=== PATIENT | female | born 1985 | race Caucasian/White ===

== ENCOUNTER 2016-08-02 22:53 | Emergency (ER) | payer OTHER ==
--- NOTE | 2016-08-03 02:40 | ED CLINICAL REPORT ---
Clinical Report - Physicians/Mid Levels [facility] [address] [place] [address] 08/02/2016 22:52 Patient: JESSE SNYDER Time Seen: 02:31 Aug 03 2016. Arrived- By private vehicle. Historian- patient. CPT: ER phys charges level 3 (#[id number]). HISTORY OF PRESENT ILLNESS Chief Complaint: Rectal itching with small white worms noted. 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 The patient has not had dark stools or rectal bleeding or pain. No constipation, nausea, vomiting or abdominal pain. Similar symptoms previously: None. Recent medical care: Not recently seen/assessed. REVIEW OF SYSTEMS No dizziness, fainting episodes, weakness, fever or sore throat. No cough, difficulty breathing, chest pain, hematuria or skin rash. No chills. Denies current . All systems otherwise negative, except as recorded above. PAST HISTORY See nurses notes. Medications: None. Allergies: Sulfa Antibiotics. SOCIAL HISTORY Heavy tobacco smoker (cigarette)- less than 1 pack per day. Alcohol use. History of drug use: marijuana. ADDITIONAL NOTES The nursing notes have been reviewed. PHYSICAL EXAM Vital Signs: 08/02/2016 23:05 BP: 133/91. HR: 96. RR: 16. O2 saturation: 100%. Temp: 97.5 F. Pain level now: 6/10. Appearance: Alert. No acute distress. Eyes: Eyes normal inspection. ENT: Pharynx normal. CVS: Normal heart rate and rhythm. Respiratory: No respiratory distress. Abdomen: Soft and nontender. Bowel sounds normal. Rectal: (No evidence of worm seen over perianal area.). Skin: Skin warm. Normal skin color. No rash. Neuro: Oriented X 3. PROGRESS AND PROCEDURES Course of Care: Presumed pinworm given the history and symptoms. Patient/family counseled. Disposition: Discharged. Condition: stable. CLINICAL IMPRESSION Pinworm INSTRUCTIONS Drink plenty of fluids. Prescription Medications: Mebendazole 100 mg: Take 1 orally today and repeat in 2 weeks. Dispense two (2). No refills. Follow-up: Follow up with your doctor in one week. Call for an appointment. Understanding of the discharge instructions verbalized by patient. (Electronically signed by Stephane Mclaughlin MD 08/04/2016 21:58)
--- NOTE | 2016-08-03 02:40 | ED CLINICAL REPORT ---
Clinical Report - Physicians/Mid Levels [facility] [address] [place] [address] 08/02/2016 22:52 Patient: JESSE SNYDER Time Seen: 02:31 Aug 03 2016. Arrived- By private vehicle. Historian- patient. CPT: ER phys charges level 3 (#[id number]). HISTORY OF PRESENT ILLNESS Chief Complaint: Rectal itching with small white worms noted. 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 The patient has not had dark stools or rectal bleeding or pain. No constipation, nausea, vomiting or abdominal pain. Similar symptoms previously: None. Recent medical care: Not recently seen/assessed. REVIEW OF SYSTEMS No dizziness, fainting episodes, weakness, fever or sore throat. No cough, difficulty breathing, chest pain, hematuria or skin rash. No chills. Denies current . All systems otherwise negative, except as recorded above. PAST HISTORY See nurses notes. Medications: None. Allergies: Sulfa Antibiotics. SOCIAL HISTORY Heavy tobacco smoker (cigarette)- less than 1 pack per day. Alcohol use. History of drug use: marijuana. ADDITIONAL NOTES The nursing notes have been reviewed. PHYSICAL EXAM Vital Signs: 08/02/2016 23:05 BP: 133/91. HR: 96. RR: 16. O2 saturation: 100%. Temp: 97.5 F. Pain level now: 6/10. Appearance: Alert. No acute distress. Eyes: Eyes normal inspection. ENT: Pharynx normal. CVS: Normal heart rate and rhythm. Respiratory: No respiratory distress. Abdomen: Soft and nontender. Bowel sounds normal. Rectal: (No evidence of worm seen over perianal area.). Skin: Skin warm. Normal skin color. No rash. Neuro: Oriented X 3. PROGRESS AND PROCEDURES Course of Care: Presumed pinworm given the history and symptoms. Patient/family counseled. Disposition: Discharged. Condition: stable. CLINICAL IMPRESSION Pinworm INSTRUCTIONS Drink plenty of fluids. Prescription Medications: Mebendazole 100 mg: Take 1 orally today and repeat in 2 weeks. Dispense two (2). No refills. Follow-up: Follow up with your doctor in one week. Call for an appointment. Understanding of the discharge instructions verbalized by patient. (Electronically signed by Stephane Mclaughlin MD 08/04/2016 21:58)
--- NOTE | 2016-08-03 02:40 | ED NURSING NOTES ---
Clinical Report - Nurses [facility] [address] [place] [address] 08/02/2016 22:52 Patient: JESSE SNYDER TRIAGE Triage time 23:05. Acuity: LEVEL 3. Chief Complaint: ABDOMINAL PAIN (rectal itching). 23:12. Alert. SEPSIS SCREEN: Sepsis Screen. Negative (no infection suspected/documented). ANGELES COMA SCORE: [place] Coma Scale: 4- eyes open spontaneously (4). --23:12 Radhames Ziegler R.N. 23:05 08/02/16. BP: 133/91. HR: 96. RR: 16. O2 saturation: 100%. Temp: 97.5 F. Pain level now: 01/04. --23:12 Radhames Ziegler R.N. Weight: 58.9 kg stated. Height/Length: 63 inches Per Patient. BMI: 23. --23:10 Radhames Ziegler R.N. Medications None. --23:09 Radhames Ziegler R.N. Medication/allergy information source: the patient. --23:12 Radhames Ziegler R.N. Allergies Sulfa Antibiotics. --23:09 Radhames Ziegler R.N. History Arrived by private vehicle. Historian: patient. Accompanied by friend. Primary physician (None). Onset. (1 weeks ago). ( Patient reports rectal itching for about 1 week, ABD cramping for 3 days, also reports seeing white in her stool- thinks she may have pin worms). 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 Took Tylenol and ibuprofen. PAST MEDICAL HX: Immunizations: up-to-date. Last normal menstrual period was 3 weeks ago. SOCIAL HX: Current every day heavy tobacco smoker- less than 1 pack per day. Occasional alcohol use. History of weekly drug use: marijuana. No infectious disease exposure. ABUSE ASSESSMENT: No report of abuse. FALL RISK ASSESSMENT: Fall risk assessment completed. No fall risk identified. NUTRITIONAL RISK ASSESSMENT: The nutritional risk assessment revealed no deficiencies. FUNCTIONAL ASSESSMENT: Functional assessment: no impairments noted. LEARNING NEEDS ASSESSMENT: The learning needs assessment revealed no barriers. SKIN INTEGRITY ASSESSMENT: Skin integrity risk assessment completed. No skin integrity risk identified. --23:12 Radhames Ziegler R.N. PROBLEMS: Ovarian Cyst. --23: Radhames Ziegler R.N. ADDITIONAL SURGERIES: . --23: Radhames Ziegler R.N. Interventions ID band on patient. To treatment room. --23: Radhames Ziegler R.N. PHYSICAL ASSESSMENT Ambulatory to room. GENERAL / NEURO / PSYCH: Alert. Oriented X 4. Appears in no acute distress. HEENT: Pupils equal, round and reactive to light. RESPIRATORY: Respirations not labored. GI / : Abdomen soft and nontender and normal bowel sounds. SKIN: Skin intact. Skin is warm and dry. Normal skin turgor. --01:00 Sabina Pineda R.N. NURSING PROGRESS NOTES Patient gowned. Head of bed elevated. Two patient identifiers checked. Call light placed in reach. Side rails up x 1. Bed placed in lowest position. Brakes of bed on. Patient ready for evaluation. --00:40 Sabina Pineda R.N. 00:47 08/03/16. BP: 119/89. HR: 97. O2 saturation: 100%. Temp: 97.9 F. --00:48 Ana Paula Love 02:15 pt waiting to see . --02:39 Sabina Pineda R.N. 02:15 08/03/16. BP: 111/73. HR: 95. RR: 18 (unlabored). O2 saturation: 98% on room air. Pain level now: 12/04. --02:39 Sabina Pineda R.N. assisted MD with pt's rectal exam. --02:39 Sabina Pineda R.N. DISPOSITION / DISCHARGE Departure time: 256. Condition at departure: unchanged. No learning barriers present. Discharge instructions provided and reviewed with the patient. Reviewed medication(s). Prescription(s) given to the patient (Mebendazole). Patient verbalized understanding. Written instructions provided in Greek. The patient was discharged by the physician. She was discharged home and accompanied by family. She left the Emergency Department ambulatory and via private vehicle. Family member driving. Medication list reviewed and validated with the patient. --04:05 Sabina Pineda R.N. 02:57 08/03/16. BP: deferred. HR: deferred. RR: deferred. O2 saturation: deferred. Temp: deferred. Pain level now deferred. --04:05 Sabina Pineda R.N. Locked/Released at 08/03/2016 4:05 by Sabina Pineda R.N.
--- NOTE | 2016-08-03 02:40 | ED NURSING NOTES ---
Clinical Report - Nurses [facility] [address] [place] [address] 08/02/2016 22:52 Patient: JESSE SNYDER TRIAGE Triage time 23:05. Acuity: LEVEL 3. Chief Complaint: ABDOMINAL PAIN (rectal itching). 23:12. Alert. SEPSIS SCREEN: Sepsis Screen. Negative (no infection suspected/documented). ANGELES COMA SCORE: [place] Coma Scale: 4- eyes open spontaneously (4). --23:12 Radhames Ziegler R.N. 23:05 08/02/16. BP: 133/91. HR: 96. RR: 16. O2 saturation: 100%. Temp: 97.5 F. Pain level now: 01/04. --23:12 Radhames Ziegler R.N. Weight: 58.9 kg stated. Height/Length: 63 inches Per Patient. BMI: 23. --23:10 Radhames Ziegler R.N. Medications None. --23:09 Radhames Ziegler R.N. Medication/allergy information source: the patient. --23:12 Radhames Ziegler R.N. Allergies Sulfa Antibiotics. --23:09 Radhames Ziegler R.N. History Arrived by private vehicle. Historian: patient. Accompanied by friend. Primary physician (None). Onset. (1 weeks ago). ( Patient reports rectal itching for about 1 week, ABD cramping for 3 days, also reports seeing white in her stool- thinks she may have pin worms). 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 Took Tylenol and ibuprofen. PAST MEDICAL HX: Immunizations: up-to-date. Last normal menstrual period was 3 weeks ago. SOCIAL HX: Current every day heavy tobacco smoker- less than 1 pack per day. Occasional alcohol use. History of weekly drug use: marijuana. No infectious disease exposure. ABUSE ASSESSMENT: No report of abuse. FALL RISK ASSESSMENT: Fall risk assessment completed. No fall risk identified. NUTRITIONAL RISK ASSESSMENT: The nutritional risk assessment revealed no deficiencies. FUNCTIONAL ASSESSMENT: Functional assessment: no impairments noted. LEARNING NEEDS ASSESSMENT: The learning needs assessment revealed no barriers. SKIN INTEGRITY ASSESSMENT: Skin integrity risk assessment completed. No skin integrity risk identified. --23:12 Radhames Ziegler R.N. PROBLEMS: Ovarian Cyst. --23: Radhames Ziegler R.N. ADDITIONAL SURGERIES: . --23: Radhames Ziegler R.N. Interventions ID band on patient. To treatment room. --23: Radhames Ziegler R.N. PHYSICAL ASSESSMENT Ambulatory to room. GENERAL / NEURO / PSYCH: Alert. Oriented X 4. Appears in no acute distress. HEENT: Pupils equal, round and reactive to light. RESPIRATORY: Respirations not labored. GI / : Abdomen soft and nontender and normal bowel sounds. SKIN: Skin intact. Skin is warm and dry. Normal skin turgor. --01:00 Sabina Pineda R.N. NURSING PROGRESS NOTES Patient gowned. Head of bed elevated. Two patient identifiers checked. Call light placed in reach. Side rails up x 1. Bed placed in lowest position. Brakes of bed on. Patient ready for evaluation. --00:40 Sabina Pineda R.N. 00:47 08/03/16. BP: 119/89. HR: 97. O2 saturation: 100%. Temp: 97.9 F. --00:48 Ana Paula Love 02:15 pt waiting to see . --02:39 Sabina Pineda R.N. 02:15 08/03/16. BP: 111/73. HR: 95. RR: 18 (unlabored). O2 saturation: 98% on room air. Pain level now: 12/04. --02:39 Sabina Pineda R.N. assisted MD with pt's rectal exam. --02:39 Sabina Pineda R.N. DISPOSITION / DISCHARGE Departure time: 256. Condition at departure: unchanged. No learning barriers present. Discharge instructions provided and reviewed with the patient. Reviewed medication(s). Prescription(s) given to the patient (Mebendazole). Patient verbalized understanding. Written instructions provided in Emirati. The patient was discharged by the physician. She was discharged home and accompanied by family. She left the Emergency Department ambulatory and via private vehicle. Family member driving. Medication list reviewed and validated with the patient. --04:05 Sabina Pineda R.N. 02:57 08/03/16. BP: deferred. HR: deferred. RR: deferred. O2 saturation: deferred. Temp: deferred. Pain level now deferred. --04:05 Sabina Pineda R.N. Locked/Released at 08/03/2016 4:05 by Sabina Pineda R.N.
--- NOTE | 2016-08-04 21:59 | ED MED RECONCILIATION SUMMARY ---
Patient: JESSE SNYDER Medication Reconciliation Report [facility] VisitID: [id number] [address] [place] [address] 31y, F Registration Date/Time: 08/02/2016 Weight: 58.9 kg Height/Length: 63 in. BMI: 23.0 ALLERGIES: Sulfa Antibiotics The patient's Home Medications are listed below: NONE. The source(s) of the original Home Medication information: patient The following Medications were given to the patient in the Emergency Department: None. The following Medications were prescribed to the patient: Mebendazole 100 mg: Take 1 orally today and repeat in 2 weeks. Dispense two (2). No refills. -- Stephane Mclaughlin MD
--- NOTE | 2016-08-04 21:59 | ED MAR SUMMARY ---
..... Medication Administration Record [facility] [address] [place], [place] [id number] Patient: JESSE SNYDER Visit ID: [id number] 31y, F Weight: 58.9 kg Height/Length: 63 in BMI: 23 ALLERGIES: Sulfa Antibiotics
--- NOTE | 2016-08-04 21:59 | ED MAR SUMMARY ---
..... Medication Administration Record [facility] [address] [place], [place] [id number] Patient: JESSE SNYDER Visit ID: [id number] 31y, F Weight: 58.9 kg Height/Length: 63 in BMI: 23 ALLERGIES: Sulfa Antibiotics
--- NOTE | 2016-08-04 21:59 | ED DISCHARGE INSTRUCTIONS ---
Patient: JESSE SNYDER General Instructions [facility] VisitID: [id number] [place] [address] 31y, F Registration Date/Time: 08/02/2016 Pinworm INSTRUCTIONS Drink plenty of fluids. Prescription Medications: Mebendazole 100 mg: Take 1 orally today and repeat in 2 weeks. Dispense two (2). No refills. Follow-up: Follow up with your doctor in one week. Call for an appointment. Understanding of the discharge instructions verbalized by patient. ADDITIONAL INFORMATION Pinworms [Child] P inworms are parasites that look like tiny (1/2 " long) white worms that live in the colon and rectum of humans. This is not uncommon among children under the age of ten years. A child with a pinworm infection will have intense itching around the anus (rectal opening) during the night. This is when pinworms come out of the rectum and lay eggs around the anus. When the child scratches this area, the eggs get under the fingernails. When other children as well as family members have [id number] contact with the infected child, eggs are passed. If you do not wash your hands after contact, the eggs get onto the food that you eat, and then an infection occurs. Treatment is with two doses of medicine taken two weeks apart. All family members should be treated at the same time , even those without symptoms. This is to be sure all pinworms and eggs among family members are killed at once. Home Care: 1) Sheets, bedding, underwear, and pajamas should be washed in hot water and then ironed to kill the eggs. 2) Parents and caretakers should wash their hands frequently especially before preparing meals, eating food and after changing or bathing the child with the infection. 3) Trim your child's nails and clean them each morning until the anal itching stops. 4) If your child is old enough, teach him/her to wash his/her hands before eating and after using the toilet. Follow Up with your doctor as advised to be sure the infection has cleared after treatment. Get Prompt Medical Attention if any of the following occur: -- Abdominal pain -- Increasing redness, drainage of fluid or crusty scabs around the anus -- Continued itching around the anus after finishing the second dose of the medicine You have been given the following additional information: Pinworms (Electronically signed by Stephane Mclaughlin MD 08/04/2016 21:58)
--- NOTE | 2016-08-04 21:59 | ED MED RECONCILIATION SUMMARY ---
Patient: JESSE SNYDER Medication Reconciliation Report [facility] VisitID: [id number] [address] [place] [address] 31y, F Registration Date/Time: 08/02/2016 Weight: 58.9 kg Height/Length: 63 in. BMI: 23.0 ALLERGIES: Sulfa Antibiotics The patient's Home Medications are listed below: NONE. The source(s) of the original Home Medication information: patient The following Medications were given to the patient in the Emergency Department: None. The following Medications were prescribed to the patient: Mebendazole 100 mg: Take 1 orally today and repeat in 2 weeks. Dispense two (2). No refills. -- Stephane Mclaughlin MD
--- NOTE | 2016-08-04 21:59 | ED DISCHARGE INSTRUCTIONS ---
Patient: JESSE SNYDER General Instructions [facility] VisitID: [id number] [place] [address] 31y, F Registration Date/Time: 08/02/2016 Pinworm INSTRUCTIONS Drink plenty of fluids. Prescription Medications: Mebendazole 100 mg: Take 1 orally today and repeat in 2 weeks. Dispense two (2). No refills. Follow-up: Follow up with your doctor in one week. Call for an appointment. Understanding of the discharge instructions verbalized by patient. ADDITIONAL INFORMATION Pinworms [Child] P inworms are parasites that look like tiny (1/2 " long) white worms that live in the colon and rectum of humans. This is not uncommon among children under the age of ten years. A child with a pinworm infection will have intense itching around the anus (rectal opening) during the night. This is when pinworms come out of the rectum and lay eggs around the anus. When the child scratches this area, the eggs get under the fingernails. When other children as well as family members have [id number]-ha-[id number] contact with the infected child, eggs are passed. If you do not wash your hands after contact, the eggs get onto the food that you eat, and then an infection occurs. Treatment is with two doses of medicine taken two weeks apart. All family members should be treated at the same time , even those without symptoms. This is to be sure all pinworms and eggs among family members are killed at once. Home Care: 1) Sheets, bedding, underwear, and pajamas should be washed in hot water and then ironed to kill the eggs. 2) Parents and caretakers should wash their hands frequently especially before preparing meals, eating food and after changing or bathing the child with the infection. 3) Trim your child's nails and clean them each morning until the anal itching stops. 4) If your child is old enough, teach him/her to wash his/her hands before eating and after using the toilet. Follow Up with your doctor as advised to be sure the infection has cleared after treatment. Get Prompt Medical Attention if any of the following occur: -- Abdominal pain -- Increasing redness, drainage of fluid or crusty scabs around the anus -- Continued itching around the anus after finishing the second dose of the medicine You have been given the following additional information: Pinworms (Electronically signed by Stephane Mclaughlin MD 08/04/2016 21:58)
== END 2016-08-03 02:57 | disposition home or self-care (01) ==
LOC: ED SRH 22:53
DX: B80 Enterobiasis (principal); F17.210 Nicotine dependence, cigarettes, uncomplicated; Z88.2 Allergy status to sulfonamides

== ENCOUNTER 2016-08-14 18:16 | Emergency (ER) | payer OTHER ==
--- NOTE | 2016-08-14 20:01 | DIAGNOSTIC IMAGING REPORT ---
PROCEDURE: XR CHEST 2 VIEW INDICATION: FEVER , initial encounter TECHNIQUE: PA and lateral view. COMPARISON: None. FINDINGS: Lungs are clear. Cardiovascular structures are normal. Bony thorax is unremarkable. IMPRESSION: 1. Negative chest.
--- NOTE | 2016-08-14 20:03 | ED CLINICAL REPORT ---
Clinical Report - Physicians/Mid Levels [facility] [address] [place] [address] 08/14/2016 18:15 Patient: JESSE SNYDER Time Seen: 18:59 Aug 14 2016. Arrived- By private vehicle. Historian- patient. HISTORY OF PRESENT ILLNESS Chief Complaint: COUGH. 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 The illness is described as mild. No chest discomfort or nasal discharge. (Patient reports Cough over the last 2 weeks, with congestion, son recently diagnosed with influenza. Reports no nausea or vomiting or diarrhea. Denies any hemoptysis. Multiple sick contacts at home. Patient additionally reports pruritic sensation to her scalp and her hands over the last few weeks, was previously being treated for pinworms. Family has had lice as well, multiple other fam members with pruritic sensations at home.). Additional history - No known contact with a sick individual. REVIEW OF SYSTEMS No nausea, diarrhea, pedal edema, calf pain or skin rash. All systems otherwise negative, except as recorded above. PAST HISTORY Problems: Pinworm. Contusion. Dysfunctional Uterine Bleeding. Ovarian Cyst. Additional Surgeries: . Medications: None. Allergies: Sulfa Antibiotics. SOCIAL HISTORY Smoker- current status unknown. Alcohol use. History of drug use: marijuana. ADDITIONAL NOTES The nursing notes have been reviewed. PHYSICAL EXAM Vital Signs: 08/14/2016 18:25 BP: 134/92. HR: 107. RR: 20. O2 saturation: 96%. Temp: 98.2 F. Pain level now: 6/10. Appearance: Alert. No acute distress. ENT: Pharynx normal. Uvula midline. Neck: Normal inspection. No lymphadenopathy. CVS: Tachycardia. Heart sounds normal. Normal rhythm. No cardiac murmur. Respiratory: No respiratory distress. Breath sounds normal. No retractions or splinting. Abdomen: Soft and nontender. Skin: (small interdigit maculapapular.). LABS, X-RAYS, AND EKG Chest X-ray: (IMPRESSION: 1. Negative chest. Electronically Final signed by:Myles Aguilar MD 08/14/2016 8:01:02 PM). PROGRESS AND PROCEDURES Course of Care: patient here in the ER, with cough, ongoing symptoms for 2 weeks. Patient with a rash, possible scabies. No emesis, no septic or systemic disease processes, no hemoptysis, no recent travel or antibiotic use. 08/14/2016 20:13 BP: 104/78. HR: 80. RR: 16. O2 saturation: 100%. Temp: 98.5 F. Patient is stable. Physical exam findings are improved. Symptoms better. Patient/family counseled. Disposition: Discharged. CLINICAL IMPRESSION Acute bronchitis. Scabies INSTRUCTIONS Drink plenty of fluids. Warnings: Further evaluation is necessary. Prescription Medications: Zithromax 250 mg tablets: take 2 orally today, followed by 1 daily for the next 4 days. No refills. Substitution is permissible. Elimite 5% Cream: Shower and dry thoroughly, then apply cream to whole body from neck down, leave on 8 hours then shower thoroughly and launder clothes and bedclothes in hot water. Repeat in 1 week if needed. Dispense two (2) tubes. No refills. Substitution is permissible. Follow-up: Follow up with your doctor in three days. (Electronically signed by Maryellen Crawford P.A.-C 08/14/2016 20:25)
--- NOTE | 2016-08-14 20:03 | ED NURSING NOTES ---
Clinical Report - Nurses [facility] [address] [place] [address] 08/14/2016 18:15 [id number] TRI[facility] Triage time 18:Aug 14 2016. Acuity: LEVEL 3. 18:25 08/14/16. SEPSIS SCREEN: Sepsis Screen. Negative (no infection suspected/documented). NEAL COMA SCORE: [place] Coma Scale: 15- eyes open spontaneously (4); best verbal response- oriented x 4 (5); best motor response- obeys commands (6). --18:32 Belén Mejía R.N. 18:25 08/14/16. BP: 134/92. HR: 107. RR: 20. O2 saturation: 96%. Temp: 98.2 F. Pain level now: 01/04. --18:32 Belén Mejía R.N. Chief Complaint: (flu sx). 18:25 08/14/16. --20:16 Belén Mejía R.N. Weight: 56.6 kg stated. Height/Length: 63 inches Per Patient. BMI: 22.1. --18:24 Belén Mejía R.N. Medications None. --18:27 Belén Mejía R.N. Medication/allergy information source: the patient. --18:32 Belén Mejía R.N. Allergies Sulfa Antibiotics. --18:27 Belén Mejía R.N. History Arrived by private vehicle. Historian: patient. Unaccompanied. Onset. (2 weeks ago). ( states cough, dyspnea, bronchitis symptoms, many treated for flu in her home, itching scalp, pain left side of chest with cough and movement). She has had fever, a cough and difficulty breathing. Reports muscle aches. No weakness or skin rash. 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 PAST MEDICAL HX: Last normal menstrual period- . Has not received seasonal influenza immunization. SOCIAL HX: Heavy tobacco smoker- 1 pack per day. Occasional alcohol use. History of drug use: marijuana. No infectious disease exposure. ABUSE ASSESSMENT: No report of abuse. SELF HARM ASSESSMENT: A self harm assessment was performed. The patient answered "no" to the question "Have you recently felt down, depressed, or hopeless?", "Have you noticed less interest or pleasure in doing things?", "Do you have thoughts of harming or killing yourself?", "Are you here because you tried to hurt yourself?", "Have you ever tried to hurt yourself before today?", "Have you recently had thoughts about harming or killing others?" and "Do you have any dangerous items in your possession?". FALL RISK ASSESSMENT: Fall risk assessment completed. No fall risk identified. NUTRITIONAL RISK ASSESSMENT: The nutritional risk assessment revealed no deficiencies. FUNCTIONAL ASSESSMENT: Functional assessment: no impairments noted. LEARNING NEEDS ASSESSMENT: The learning needs assessment revealed no barriers. SKIN INTEGRITY ASSESSMENT: Skin integrity risk assessment completed. No skin integrity risk identified. --18:32 Belén Mejía R.N. PROBLEMS: Pinworm. --18:28 Belén Mejía R.N. ADDITIONAL SURGERIES: . --18:28 Belén Mejía R.N. Interventions ID band on patient. --18:32 Belén Mejía R.N. DISPOSITION / DISCHARGE 20:13 08/14/16. Condition at departure: improved and stable. The goals identified in the patient's plan of care were met. No learning barriers present. Reviewed medication(s) side effects, precautions, dosing and course information. Prescription(s) given to the patient (z pack, elimite). Reviewed referral to a primary care physician for followup. Patient verbalized understanding. Written instructions provided in Estonian. The patient was discharged home and unaccompanied at time of discharge. She left the Emergency Department ambulatory and via private vehicle. Driving (calling for ride). --20:13 Belén Mejía R.N. 20:13 08/14/16. BP: 104/78. HR: 80. RR: 16. O2 saturation: 100%. Temp: 98.5 F. Pain level now 0/10. --20:13 Belén Mejía R.N. Departure time: 20:Aug 14 2016. --20:13 Belén Mejía R.N. Locked/Released at 08/14/2016 20:16 by Belén Mejía R.N.
--- NOTE | 2016-08-14 20:03 | ED CLINICAL REPORT ---
Clinical Report - Physicians/Mid Levels [facility] [address] [place] [address] 08/14/2016 18:15 Patient: JESSE SNYDER Time Seen: 18:59 Aug 14 2016. Arrived- By private vehicle. Historian- patient. HISTORY OF PRESENT ILLNESS Chief Complaint: COUGH. 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 The illness is described as mild. No chest discomfort or nasal discharge. (Patient reports Cough over the last 2 weeks, with congestion, son recently diagnosed with influenza. Reports no nausea or vomiting or diarrhea. Denies any hemoptysis. Multiple sick contacts at home. Patient additionally reports pruritic sensation to her scalp and her hands over the last few weeks, was previously being treated for pinworms. Family has had lice as well, multiple other fam members with pruritic sensations at home.). Additional history - No known contact with a sick individual. REVIEW OF SYSTEMS No nausea, diarrhea, pedal edema, calf pain or skin rash. All systems otherwise negative, except as recorded above. PAST HISTORY Problems: Pinworm. Contusion. Dysfunctional Uterine Bleeding. Ovarian Cyst. Additional Surgeries: . Medications: None. Allergies: Sulfa Antibiotics. SOCIAL HISTORY Smoker- current status unknown. Alcohol use. History of drug use: marijuana. ADDITIONAL NOTES The nursing notes have been reviewed. PHYSICAL EXAM Vital Signs: 08/14/2016 18:25 BP: 134/92. HR: 107. RR: 20. O2 saturation: 96%. Temp: 98.2 F. Pain level now: 6/10. Appearance: Alert. No acute distress. ENT: Pharynx normal. Uvula midline. Neck: Normal inspection. No lymphadenopathy. CVS: Tachycardia. Heart sounds normal. Normal rhythm. No cardiac murmur. Respiratory: No respiratory distress. Breath sounds normal. No retractions or splinting. Abdomen: Soft and nontender. Skin: (small interdigit maculapapular.). LABS, X-RAYS, AND EKG Chest X-ray: (IMPRESSION: 1. Negative chest. Electronically Final signed by:Myles Aguilar MD 08/14/2016 8:01:02 PM). PROGRESS AND PROCEDURES Course of Care: patient here in the ER, with cough, ongoing symptoms for 2 weeks. Patient with a rash, possible scabies. No emesis, no septic or systemic disease processes, no hemoptysis, no recent travel or antibiotic use. 08/14/2016 20:13 BP: 104/78. HR: 80. RR: 16. O2 saturation: 100%. Temp: 98.5 F. Patient is stable. Physical exam findings are improved. Symptoms better. Patient/family counseled. Disposition: Discharged. CLINICAL IMPRESSION Acute bronchitis. Scabies INSTRUCTIONS Drink plenty of fluids. Warnings: Further evaluation is necessary. Prescription Medications: Zithromax 250 mg tablets: take 2 orally today, followed by 1 daily for the next 4 days. No refills. Substitution is permissible. Elimite 5% Cream: Shower and dry thoroughly, then apply cream to whole body from neck down, leave on 8 hours then shower thoroughly and launder clothes and bedclothes in hot water. Repeat in 1 week if needed. Dispense two (2) tubes. No refills. Substitution is permissible. Follow-up: Follow up with your doctor in three days. (Electronically signed by Maryellen Crawford P.A.-C 08/14/2016 20:25)
--- NOTE | 2016-08-14 20:03 | ED ORDER SUMMARY ---
..... Patient: JESSE SNYDER OrderSheet [facility] VisitID: [id number] [place] [address] 31y, F Registration Date/Time: 08/14/2016 ORDER SHEET Weight: 56.6 kg (stated) Allergies: Sulfa Antibiotics GENERAL ORDERS: Chest 2V Urgent (18:43 08/14/2016 EKoroleva P.A.-C) (Ack 18:46 NYouse ER Tech1) (19:54 MCampbell) Rapid Influenza Screen (Nasal Pharyngeal) (n) Urgent (18:43 08/14/2016 EKoroleva P.A.-C) (Ack 18:46 NYouse ER Tech1) (18:50 EInderbitzen R.N.) Urine Urgent (19:00 08/14/2016 EIndval R.N. verbal order read back to EKramsey P.A.-C) (19:03 NYouse ER Tech1) MEDICATION ORDERS: IV FLUIDS: ORDER SHEET NOTES: [Electronically signed by Belén Mejía R.N. (20:16 08/14/2016)] [Electronically signed by Maryellen Crawford P.A.-C (20:25 08/14/2016)] [Electronically locked/signed by Belén Mejía R.N. (20:16 08/14/2016)]
--- NOTE | 2016-08-14 20:03 | ED NURSING NOTES ---
Clinical Report - Nurses [facility] [address] [place] [address] 08/14/2016 18:15 [id number] Triage time 18:Aug 14 2016. Acuity: LEVEL 3. 18:25 08/14/16. SEPSIS SCREEN: Sepsis Screen. Negative (no infection suspected/documented). NEAL COMA SCORE: [place] Coma Scale: 15- eyes open spontaneously (4); best verbal response- oriented x 4 (5); best motor response- obeys commands (6). --18:32 Belén Mejía R.N. 18:25 08/14/16. BP: 134/92. HR: 107. RR: 20. O2 saturation: 96%. Temp: 98.2 F. Pain level now: 01/04. --18:32 Belén Mejía R.N. Chief Complaint: (flu sx). 18:25 08/14/16. --20:16 Belén Mejía R.N. Weight: 56.6 kg stated. Height/Length: 63 inches Per Patient. BMI: 22.1. --18:24 Belén Mejía R.N. Medications None. --18:27 Belén Mejía R.N. Medication/allergy information source: the patient. --18:32 Belén Mejía R.N. Allergies Sulfa Antibiotics. --18:27 Belén Mejía R.N. History Arrived by private vehicle. Historian: patient. Unaccompanied. Onset. (2 weeks ago). ( states cough, dyspnea, bronchitis symptoms, many treated for flu in her home, itching scalp, pain left side of chest with cough and movement). She has had fever, a cough and difficulty breathing. Reports muscle aches. No weakness or skin rash. 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 PAST MEDICAL HX: Last normal menstrual period- . Has not received seasonal influenza immunization. SOCIAL HX: Heavy tobacco smoker- 1 pack per day. Occasional alcohol use. History of drug use: marijuana. No infectious disease exposure. ABUSE ASSESSMENT: No report of abuse. SELF HARM ASSESSMENT: A self harm assessment was performed. The patient answered "no" to the question "Have you recently felt down, depressed, or hopeless?", "Have you noticed less interest or pleasure in doing things?", "Do you have thoughts of harming or killing yourself?", "Are you here because you tried to hurt yourself?", "Have you ever tried to hurt yourself before today?", "Have you recently had thoughts about harming or killing others?" and "Do you have any dangerous items in your possession?". FALL RISK ASSESSMENT: Fall risk assessment completed. No fall risk identified. NUTRITIONAL RISK ASSESSMENT: The nutritional risk assessment revealed no deficiencies. FUNCTIONAL ASSESSMENT: Functional assessment: no impairments noted. LEARNING NEEDS ASSESSMENT: The learning needs assessment revealed no barriers. SKIN INTEGRITY ASSESSMENT: Skin integrity risk assessment completed. No skin integrity risk identified. --18:32 Belén Mejía R.N. PROBLEMS: Pinworm. --18:28 Belén Mejía R.N. ADDITIONAL SURGERIES: . --18:28 Belén Mejía R.N. Interventions ID band on patient. --18:32 Belén Mejía R.N. DISPOSITION / DISCHARGE 20:13 08/14/16. Condition at departure: improved and stable. The goals identified in the patient's plan of care were met. No learning barriers present. Reviewed medication(s) side effects, precautions, dosing and course information. Prescription(s) given to the patient (z pack, elimite). Reviewed referral to a primary care physician for followup. Patient verbalized understanding. Written instructions provided in Hebrew. The patient was discharged home and unaccompanied at time of discharge. She left the Emergency Department ambulatory and via private vehicle. Driving (calling for ride). --20:13 Belén Mejía R.N. 20:13 08/14/16. BP: 104/78. HR: 80. RR: 16. O2 saturation: 100%. Temp: 98.5 F. Pain level now 0/10. --20:13 Belén Mejía R.N. Departure time: 20:Aug 14 2016. --20:13 Belén Mejía R.N. Locked/Released at 08/14/2016 20:16 by Belén Mejía R.N.
--- NOTE | 2016-08-14 20:03 | ED ORDER SUMMARY ---
..... Patient: JESSE SNYDER OrderSheet [facility] VisitID: [id number] [place] [address] 31y, F Registration Date/Time: 08/14/2016 ORDER SHEET Weight: 56.6 kg (stated) Allergies: Sulfa Antibiotics GENERAL ORDERS: Chest 2V Urgent (18:43 08/14/2016 EKoroleva P.A.-C) (Ack 18:46 INouse ER Tech1) (19:54 MCampbell) Rapid Influenza Screen (Nasal Pharyngeal) (n) Urgent (18:43 08/14/2016 EKoroleva P.A.-C) (Ack 18:46 INouse ER Tech1) (18:50 EInderbitzen R.N.) Urine Urgent (19:00 08/14/2016 EIndval R.N. verbal order read back to EKramsey P.A.-C) (19:03 INouse ER Tech1) MEDICATION ORDERS: IV FLUIDS: ORDER SHEET NOTES: [Electronically signed by Belén Mejía R.N. (20:16 08/14/2016)] [Electronically signed by Maryellen Crawford P.A.-C (20:25 08/14/2016)] [Electronically locked/signed by Belén Mejía R.N. (20:16 08/14/2016)]
--- NOTE | 2016-08-14 20:25 | ED MAR SUMMARY ---
..... Medication Administration Record [facility] [address], [place] [id number] Patient: JESSE SNYDER Visit ID: [id number] 31y, F Weight: 56.6 kg Height/Length: 63 in BMI: 22.1 ALLERGIES: Sulfa Antibiotics
--- NOTE | 2016-08-14 20:25 | ED DISCHARGE INSTRUCTIONS ---
Patient: JESSE SNYDER General Instructions [facility] VisitID: [id number] [place] [address] 31y, F Registration Date/Time: 08/14/2016 Acute bronchitis. Scabies INSTRUCTIONS Drink plenty of fluids. Warnings: Further evaluation is necessary. Prescription Medications: Zithromax 250 mg tablets: take 2 orally today, followed by 1 daily for the next 4 days. No refills. Substitution is permissible. Elimite 5% Cream: Shower and dry thoroughly, then apply cream to whole body from neck down, leave on 8 hours then shower thoroughly and launder clothes and bedclothes in hot water. Repeat in 1 week if needed. Dispense two (2) tubes. No refills. Substitution is permissible. Follow-up: Follow up with your doctor in three days. ADDITIONAL INFORMATION Bronchitis (Adult: Abx Tx) BRONCHITIS is an infection of the air passages (bronchial tubes). It often occurs during the common cold. Symptoms include cough with mucus (phlegm) and low-grade fever. Bronchitis usually lasts 7-14 days. Mild cases can be treated with simple home remedies. More severe infection is treated with an antibiotic. Home Care: If symptoms are severe, rest at home for the first 2-3 days. When you resume activity, don't let yourself get too tired. Do not smoke. Avoid being exposed to the smoke of others. You may use acetaminophen (Tylenol) or ibuprofen (Motrin, Advil) to control fever or pain, unless another medicine was prescribed for this. [NOTE: If you have chronic liver or kidney disease or ever had a stomach ulcer or GI bleeding, talk with your doctor before using these medicines.] Your appetite may be poor, so a light diet is fine. Avoid dehydration by drinking 6-8 glasses of fluids per day (water, soft, drinks, juices, tea, soup, etc.). Extra fluids will help loosen secretions in the lungs. Xjhc-tir-effjzqh cough medicines that containdextromethorphan(such as Robitussin DM) and decongestants (Actifed or Sudafed) may help relieve cough and congestion. [NOTE: Do not use decongestants if you have high blood pressure.] Finish all antibiotic medicine, even if you are feeling better after only a few days. Follow Up with your doctor or as directed if you dont start to feel better after three days. [NOTE: If you are age 65 or older, or if you have chronic asthma or COPD, we recommend a PNEUMOCOCCAL VACCINATION every five years and a yearly INFLUENZAVACCINATION (FLU-SHOT) every . Ask your doctor about this. If you had an X-ray, a radiologist will review it. You will be notified of any new findings that may affect your care.] Get Prompt Medical Attention if any of the following occur: Fever over 100.4F (38.0C) for more than three days Trouble breathing, wheezing or pain with breathing Coughing up blood or increased amounts of colored sputum Weakness, drowsiness, headache, facial pain, ear pain or a stiff neck Scabies Scabies is a skin disease caused by a tiny insect that can only be seen with a microscope. Scabies mauricio under the skin and cause an itchy bumpy rash on the hands, feet, armpits, buttocks and groin area. Preventing Spread To Others: Scabies is highly contagious. It is easily spread by close personal contact or by sharing bed linens or clothing used by an infected person. It may take 4-6 weeks for symptoms to appear after being exposed. Everyone living in the house with an infected person, as well as sexual partners of an infected person, should be treated at the same time. After the first treatment, you will no longer be contagious and you may return to work, school or daycare. Home Care: Clothing Care Machine wash in hot water all sheets, towels, pillowcases, underwear, pajamas and any other clothing recently worn. Use the hot cycle of a dryer or use a hot iron to sterilize. Items that are difficult to wash such as coats, jackets, blankets and spreads can be sealed in a plastic trash bag for four days. (The insects after three days off the human body.) Using Medicine Use the medicine (Kwell or Elimite) exactly as prescribed. Apply it at bedtime from the chin down to your toes, covering all of your skin. Do this even in areas that don't seem infected! Avoid getting the medicine in your eyes and the sensitive areas around the vagina and tip of the penis. If it gets in a sensitive area, rinse with lots of water. Wash off the medicine 8-14 hours later. Do not leave it on the skin longer than directed and do not use it more often than directed. Otherwise, side effects may occur. A single treatment will kill the mites in the skin right away, but it may take 2-4 weeks for all of the itching and rash to go away. Itching may increase slightly right after the treatment, but you should be better by the end of the first week. Women should tell their doctor if they are nursing or think they may be before using this medicine. Itching Oral Benadryl (diphenhydramine) is an antihistamine available at drug and grocery stores. Unless a prescription antihistamine was given, Benadryl may be used to reduce itching if large areas of the skin are involved. Use lower doses during the daytime and higher doses at bedtime since the drug may make you sleepy. [NOTE: Do not use Benadryl if you have glaucoma or if you are a man with trouble urinating due to an enlarged prostate.] Claritin (loratidine) is an antihistamine that causes less drowsiness and is a good alternative for daytime use. For severe itch attacks, apply an ice pack (ice cubes in a plastic bag, wrapped in a towel) or use Lanacaine, Lanacort or Solarcaine (or other medicines containing benzocaine, sold without a prescription). Follow Up with your doctor or as directed if your symptoms do not improve after 1 week. Get Prompt Medical Attention if any of the following occur: Increasing redness of the skin Yellow-brown crusts or drainage from the sores Fever of 100.4F (38C) or higher, or as directed by your healthcare provider Permethrin Topical cream What is this medicine? PERMETHRIN (per METH rin) skin cream is used to treat scabies. How should I use this medicine? This medicine is for external use only. Do not take by mouth. Follow the directions on the prescription label. A bath or shower is NOT recommended before applying this medicine. Thoroughly rub the cream into all skin surfaces, from your head to the soles of your feet. It is important to apply it everywhere on your body, not just where the rash is. Apply the cream between fingers and toe creases, in the folds of the wrist and waistline, in the cleft of the buttocks, on the genitals, and in the belly button. Use a toothpick to apply the cream beneath your fingernails and toenails. Nails should be cut short. If you have little or no hair, or you are applying the cream to an or young child, make sure you rub the cream into the neck, scalp, hairline, temples, and forehead. Leave it on for 8 to 14 hours, then remove it by bathing and shampooing. If you are applying this medicine to another person, wear plastic or disposable gloves to protect yourself from infestation. Do not get this medicine in your eyes. If you do, rinse out with plenty of cool tap water. Talk to your chocolate molder regarding the use of this medicine in children. While this drug may be prescribed for children as young as 2 months of age for selected conditions, precautions do apply. What side effects may I notice from receiving this medicine? Side effects that usually do not require medical attention (report to your doctor or health home care consultant if they continue or are bothersome): itching numbness rash redness or mild swelling of the skin stinging or burning tingling sensation What may interact with this medicine? Interactions are not expected. Do not use any other skin products on the affected area without telling your doctor or health home care consultant. What if I miss a dose? This does not apply. Where should I keep my medicine? Keep out of the reach of children. Store at room temperature away from heat and direct light. Do not refrigerate or freeze. Throw away any unused medicine after the expiration date. What should I tell my health care provider before I take this medicine? They need to know if you have any of these conditions: asthma an unusual or allergic reaction to permethrin, veterinary or household insecticides, other medicines, chrysanthemums, foods, dyes, or preservatives or trying to get breast-feeding What should I watch for while using this medicine? It is not unusual for itching and rash to continue for as long as 2 to 4 weeks after treatment. These symptoms may be a temporary reaction to the remains of the mites. This does not mean this cream did not work or that it needs to be reapplied. If you feel that the itching and rash is intense or if it continues beyond 4 weeks, talk to your doctor or health home care consultant right away. Scabies is spread by direct skin contact with an infected person. Family members and sexual partners may require treatment with this medicine. You should discuss this with your doctor or health home care consultant. Using a normal washing cycle, you should wash all clothing, towels and bed linen that has touched your skin. You do not need to rewash clean clothing that has not yet been worn. Mcconnell, furniture, rugs, floors, and vazquez do not need to be cleaned in any special manner. You have been given the following additional information: Bronchitis, Antiobiotic Treatment (Adult) Scabies Permethrin Topical cream (Electronically signed by Maryellen Crawford P.A.-C 08/14/2016 20:25)
--- NOTE | 2016-08-14 20:25 | ED MAR SUMMARY ---
..... Medication Administration Record [facility] [address] [place], [place] [id number] Patient: JESSE SNYDER Visit ID: [id number] 31y, F Weight: 56.6 kg Height/Length: 63 in BMI: 22.1 ALLERGIES: Sulfa Antibiotics
--- NOTE | 2016-08-14 20:25 | ED MED RECONCILIATION SUMMARY ---
Patient: JESSE SNYDER Medication Reconciliation Report [facility] VisitID: [id number] [address] [place] [place] [address] 31y, F Registration Date/Time: 08/14/2016 Weight: 56.6 kg Height/Length: 63 in. BMI: 22.1 ALLERGIES: Sulfa Antibiotics The patient's Home Medications are listed below: NONE. The source(s) of the original Home Medication information: patient The following Medications were given to the patient in the Emergency Department: None. The following Medications were prescribed to the patient: Zithromax 250 mg tablets: take 2 orally today, followed by 1 daily for the next 4 days. No refills. Substitution is permissible. -- Maryellen Crawford, P.A.-Heather Elimite 5% Cream: Shower and dry thoroughly, then apply cream to whole body from neck down, leave on 8 hours then shower thoroughly and launder clothes and bedclothes in hot water. Repeat in 1 week if needed. Dispense two (2) tubes. No refills. Substitution is permissible. -- Maryellen Crawford, P.A.-C
--- NOTE | 2016-08-14 20:25 | ED MED RECONCILIATION SUMMARY ---
Patient: JESSE SNYDER Medication Reconciliation Report [facility] VisitID: [id number] [address] [place] [address] 31y, F Registration Date/Time: 08/14/2016 Weight: 56.6 kg Height/Length: 63 in. BMI: 22.1 ALLERGIES: Sulfa Antibiotics The patient's Home Medications are listed below: NONE. The source(s) of the original Home Medication information: patient The following Medications were given to the patient in the Emergency Department: None. The following Medications were prescribed to the patient: Zithromax 250 mg tablets: take 2 orally today, followed by 1 daily for the next 4 days. No refills. Substitution is permissible. -- Maryellen Crawford, P.A.-Heather Elimite 5% Cream: Shower and dry thoroughly, then apply cream to whole body from neck down, leave on 8 hours then shower thoroughly and launder clothes and bedclothes in hot water. Repeat in 1 week if needed. Dispense two (2) tubes. No refills. Substitution is permissible. -- Maryellen Crawford, P.A.-C
== END 2016-08-14 20:13 | disposition home or self-care (01) ==
LOC: ED SRH 18:16
DX: J20.9 Acute bronchitis, unspecified (principal); B86 Scabies; F17.200 Nicotine dependence, unspecified, uncomplicated; Z88.2 Allergy status to sulfonamides
CPT/HCPCS: 91400; 93070

== ENCOUNTER 2016-09-22 01:34 | Emergency (ER) | payer OTHER ==
--- NOTE | 2016-09-22 02:06 | ED NURSING NOTES ---
Clinical Report - Nurses [facility] [address] [place] [address] 09/22/2016 1:34 Patient: JESSE SNYDER [facility] [id number] TRIAGE Triage time 0148 AM. Acuity: LEVEL 4. Chief Complaint: INJURY TO LEFT SHOULDER. Alert. No acute distress. ANGELES COMA SCORE: [place] Coma Scale: 15- eyes open spontaneously (4); best verbal response- oriented x 4 (5); best motor response- obeys commands (6). --01:50 Binu Plasencia R.N. 01:48 09/22/16. BP: 133/95 taken on the left arm, via an automated monitor, while lying. HR: 93 (regular and normal rate). RR: 16. O2 saturation: 100% on room air. Temp: 98.5 F (oral). Pain level now: 03/06. --01:50 Binu Plasencia R.N. Weight: 65.7 kg estimated. Height/Length: 67 inches Estimated. BMI: 22.7. --01:48 Binu Plasencia R.N. Medications Control Pills. --01:50 Binu Plasencia R.N. Ibuprofen Oral. --01:50 Binu Plasencia R.N. Allergies Sulfa Antibiotics. --01:49 Binu Plasencia R.N. History Arrived by private vehicle. Historian: patient. Accompanied by family. This occurred just prior to arrival. Mechanism of injury: fell while walking and landed on a hard surface; tripped. 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 PAST MEDICAL HX: Tetanus status: up-to-date. Immunizations: up-to-date. SOCIAL HX: Current every day heavy tobacco smoker (cigarette)- less than 1 pack per day. Alcohol use. (no). History of drug use. (no). FALL RISK ASSESSMENT: Fall risk assessment completed. No fall risk identified. NUTRITIONAL RISK ASSESSMENT: The nutritional risk assessment revealed no deficiencies. FUNCTIONAL ASSESSMENT: Functional assessment: no impairments noted. LEARNING NEEDS ASSESSMENT: The learning needs assessment revealed no barriers. SKIN INTEGRITY ASSESSMENT: Skin integrity risk assessment completed. No skin integrity risk identified. --01:50 Binu Plasencia R.N. PROBLEMS: Scabies. Bronchitis. Pinworm. Contusion. Dysfunctional Uterine Bleeding. Ovarian Cyst. --01:50 Binu Plasencia R.N. ADDITIONAL SURGERIES: . --01:50 Binu Plasencia R.N. Interventions ID band on patient. To treatment room. --01:50 Binu Plasencia R.N. PHYSICAL ASSESSMENT Ambulatory to room. GENERAL / NEURO / PSYCH: Oriented X 4. Alert. Appears in no acute distress. EXTREMITIES: Capillary refill is less than 2 seconds in the extremities. Extremity pulses are within normal limits. Extremities exhibit normal ROM. Neuro-vascular status intact to the extremity. Left shoulder: tenderness. SKIN: Skin intact. Skin is warm and dry. --01:51 Binu Plasencia R.N. NURSING PROGRESS NOTES Sling applied to left arm by nurse; distal pulses intact, sensation intact and motor function within normal limits. GENERAL / NEURO / PSYCH: Alert. Oriented X 4. RESPIRATORY: No respiratory distress. CVS: Capillary refill less than 2 seconds. EXTREMITIES: Neuro-vascular status intact to the extremity. SKIN: Skin is warm and dry. --02:29 Binu Plasencia R.N. DISPOSITION / DISCHARGE Condition at departure: improved. The goals identified in the patient's plan of care were met. Reviewed medication(s) side effects, precautions, dosing and course information. Prescription(s) given to the patient. Reviewed splint care instructions. Activity restrictions (rest) reviewed. Patient verbalized understanding. Written instructions provided in Romansh. The patient was discharged home and accompanied by spouse. She left the Emergency Department ambulatory and via private vehicle. Spouse driving. FALL RISK ASSESSMENT: Fall risk assessment completed. No fall risk identified. --02:28 Binu Plasencia R.N. 02:26 09/22/16. BP: 127/95 taken on the left arm, via an automated monitor, while lying. HR: 93. RR: 16. O2 saturation: 100%. Temp: 98.2 F (oral). --02:28 Binu Plasencia R.N. Departure time: 0229 AM. --02:29 Binu Plasencia R.N. Locked/Released at 09/22/2016 2:39 by Binu Plasencia R.N.
--- NOTE | 2016-09-22 02:06 | ED CLINICAL REPORT ---
Clinical Report - Physicians/Mid Levels [facility] [address] [place] [address] 09/22/2016 1:34 Patient: JESSE SNYDER Time Seen: 0155. Arrived- By private vehicle. Historian- patient. HISTORY OF PRESENT ILLNESS Chief Complaint: Injury to left shoulder. The injury happened today. Fell. Occurred at home. ( tripped and hit it against wall). Patient is experiencing mild pain. Patient denies injury to the head or neck. No other injury. REVIEW OF SYSTEMS No swelling, tingling, numbness, weakness or suspected foreign body. No skin laceration. All systems otherwise negative, except as recorded above. PAST HISTORY See nurses notes. Tetanus immunization status is up-to-date. Medications: Ibuprofen Oral. Control Pills. Allergies: Sulfa Antibiotics. SOCIAL HISTORY Never smoker. No alcohol use or drug use. Is a local resident. ADDITIONAL NOTES The nursing notes have been reviewed. PHYSICAL EXAM Vital Signs: 09/22/2016 01:48 BP: 133/95. HR: 93. RR: 16. O2 saturation: 100%. Temp: 98.5 F. Pain level now: 8/10. Blood pressure normal. Oxygen saturation normal. Appearance: Alert. Oriented X3. No acute distress. Head: Head atraumatic. Eyes: Pupils equal, round and reactive to light. Eyes normal inspection. ENT: Ears normal. Nose normal. Pharynx normal. Neck: Normal inspection. Neck supple. C-spine non-tender. CVS: Normal heart rate and rhythm. Heart sounds normal. Pulses normal. Respiratory: No respiratory distress. Breath sounds normal. Chest nontender. Abdomen: No visible injury. Soft and nontender. Bowel sounds normal. Back: Normal inspection. No tenderness. ROM normal. Skin: Skin intact. Skin warm and dry. Normal skin color. Normal skin turgor. Extremities: Normal external inspection. (no overlying skin changes. no crepitus. no lashanda abnormalities. compartments soft. normal ROM.). Extremities otherwise negative. Neuro, Vascular and Tendons: Sensation intact. Motor intact. Vascular status intact. Tendon function intact. Tendon visualized, uninjured. PROGRESS AND PROCEDURES Course of Care: The patient is a pleasant 31-year-old female presenting for evaluation of shoulder pain. Head discussion patient in regards to her presentation here in the emergency department and my exam findings. Offered patient radiographs of the shoulder. Patient reportsshe is worried about the radiation risk. Patient currently decliningx-ray. Discussed with patient the reason for offering patient's x-rays here in the emergency department after having traumatic shoulder injury. Patient is neurovascularly intact and there is no evidence ofshoulder dislocation. Do not feel can force patient to undergo imaging tests which expose her to radiation against her will. Patient is appropriate and reliable. Patient will be instructed to follow-up with her doctor in regards tofollow-up. Sling provided for comfort. Patient declines offers of pain medication. Patient reported that she only wanted to make sure that her shoulder wasokay. Discussed with patient workup, diagnosis, home care, follow-up, and return precautions. All questions have been answered. The patient expressed Understanding of these instructions and was agreeable to them. Disposition: Discharged. Condition: good. CLINICAL IMPRESSION Single contusion to the left shoulder.No hematoma or skin abrasion. INSTRUCTIONS Warnings: GENERAL WARNINGS: Return or contact your physician immediately if your condition worsens or changes unexpectedly, if not improving as expected, or if other problems arise. Specifically return if pain, vomiting, bleeding, breathing difficulty or fever. Your Current Medications: CONTINUE TAKING THE FOLLOWING MEDICATIONS: Control Pills*. Ibuprofen Oral. Prescription Medications: [place] 5 mg / 325 mg tablets: take 1 orally every 6 hours. Dispense ten (10). No refill. Substitution is permissible. Naproxen 500 mg: take 1 orally every 12 hours as needed for pain, stiffness or swelling. Dispense twenty (20). No refills. Follow-up: Return to the emergency department as needed. Follow up with your doctor in one week. Reason for referral: recheck today's concerns. Summary of care provided to patient via paper. Screening today revealed the patient's blood pressure to be in the normal range. The patient should follow up with a primary care provider for blood pressure management. Understanding of the discharge instructions verbalized by patient. (Electronically signed by Raf Parada Dr. 09/29/2016 10:20)
--- NOTE | 2016-09-22 02:06 | ED NURSING NOTES ---
Clinical Report - Nurses [facility] [address] [place] [address] 09/22/2016 1:34 [id number] Triage time 0148 AM. Acuity: LEVEL 4. Chief Complaint: INJURY TO LEFT SHOULDER. Alert. No acute distress. ANGELES COMA SCORE: [place] Coma Scale: 15- eyes open spontaneously (4); best verbal response- oriented x 4 (5); best motor response- obeys commands (6). --01:50 Binu Plasencia R.N. 01:48 09/22/16. BP: 133/95 taken on the left arm, via an automated monitor, while lying. HR: 93 (regular and normal rate). RR: 16. O2 saturation: 100% on room air. Temp: 98.5 F (oral). Pain level now: 03/06. --01:50 Binu Plasencia R.N. Weight: 65.7 kg estimated. Height/Length: 67 inches Estimated. BMI: 22.7. --01:48 Binu Plasencia R.N. Medications Control Pills. --01:50 Binu Plasencia R.N. Ibuprofen Oral. --01:50 Binu Plasencia R.N. Allergies Sulfa Antibiotics. --01:49 Binu Plasencia R.N. History Arrived by private vehicle. Historian: patient. Accompanied by family. This occurred just prior to arrival. Mechanism of injury: fell while walking and landed on a hard surface; tripped. 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 PAST MEDICAL HX: Tetanus status: up-to-date. Immunizations: up-to-date. SOCIAL HX: Current every day heavy tobacco smoker (cigarette)- less than 1 pack per day. Alcohol use. (no). History of drug use. (no). FALL RISK ASSESSMENT: Fall risk assessment completed. No fall risk identified. NUTRITIONAL RISK ASSESSMENT: The nutritional risk assessment revealed no deficiencies. FUNCTIONAL ASSESSMENT: Functional assessment: no impairments noted. LEARNING NEEDS ASSESSMENT: The learning needs assessment revealed no barriers. SKIN INTEGRITY ASSESSMENT: Skin integrity risk assessment completed. No skin integrity risk identified. --01:50 Bniu Plasencia R.N. PROBLEMS: Scabies. Bronchitis. Pinworm. Contusion. Dysfunctional Uterine Bleeding. Ovarian Cyst. --01:50 Binu Plasencia R.N. ADDITIONAL SURGERIES: . --01:50 Binu Plasencia R.N. Interventions ID band on patient. To treatment room. --01:50 Binu Plasencia R.N. PHYSICAL ASSESSMENT Ambulatory to room. GENERAL / NEURO / PSYCH: Oriented X 4. Alert. Appears in no acute distress. EXTREMITIES: Capillary refill is less than 2 seconds in the extremities. Extremity pulses are within normal limits. Extremities exhibit normal ROM. Neuro-vascular status intact to the extremity. Left shoulder: tenderness. SKIN: Skin intact. Skin is warm and dry. --01:51 Binu Plasencia R.N. NURSING PROGRESS NOTES Sling applied to left arm by nurse; distal pulses intact, sensation intact and motor function within normal limits. GENERAL / NEURO / PSYCH: Alert. Oriented X 4. RESPIRATORY: No respiratory distress. CVS: Capillary refill less than 2 seconds. EXTREMITIES: Neuro-vascular status intact to the extremity. SKIN: Skin is warm and dry. --02:29 Binu Plasencia R.N. DISPOSITION / DISCHARGE Condition at departure: improved. The goals identified in the patient's plan of care were met. Reviewed medication(s) side effects, precautions, dosing and course information. Prescription(s) given to the patient. Reviewed splint care instructions. Activity restrictions (rest) reviewed. Patient verbalized understanding. Written instructions provided in Albanian. The patient was discharged home and accompanied by spouse. She left the Emergency Department ambulatory and via private vehicle. Spouse driving. FALL RISK ASSESSMENT: Fall risk assessment completed. No fall risk identified. --02:28 Binu Plasencia R.N. 02:26 09/22/16. BP: 127/95 taken on the left arm, via an automated monitor, while lying. HR: 93. RR: 16. O2 saturation: 100%. Temp: 98.2 F (oral). --02:28 Binu Plasencia R.N. Departure time: 0229 AM. --02:29 Binu Plasencia R.N. Locked/Released at 09/22/2016 2:39 by Binu Plasencia R.N.
--- NOTE | 2016-09-29 10:20 | ED MAR SUMMARY ---
..... Medication Administration Record [facility] [address], [place] [id number] Patient: JESSE SNYDER Visit ID: [id number] 31y, F Weight: 65.7 kg Height/Length: 67 in BMI: 22.7 ALLERGIES: Sulfa Antibiotics
--- NOTE | 2016-09-29 10:20 | ED DISCHARGE INSTRUCTIONS ---
Patient: JESSE SNYDER General Instructions [facility] VisitID: [id number] [address] [place] [address] 31y, F Registration Date/Time: 09/22/2016 Single contusion to the left shoulder.No hematoma or skin abrasion. INSTRUCTIONS Warnings: GENERAL WARNINGS: Return or contact your physician immediately if your condition worsens or changes unexpectedly, if not improving as expected, or if other problems arise. Specifically return if pain, vomiting, bleeding, breathing difficulty or fever. Your Current Medications: CONTINUE TAKING THE FOLLOWING MEDICATIONS: Control Pills*. Ibuprofen Oral. Prescription Medications: [place] 5 mg / 325 mg tablets: take 1 orally every 6 hours. Dispense ten (10). No refill. Substitution is permissible. Naproxen 500 mg: take 1 orally every 12 hours as needed for pain, stiffness or swelling. Dispense twenty (20). No refills. Follow-up: Return to the emergency department as needed. Follow up with your doctor in one week. Reason for referral: recheck today's concerns. Summary of care provided to patient via paper. Screening today revealed the patient's blood pressure to be in the normal range. The patient should follow up with a primary care provider for blood pressure management. Understanding of the discharge instructions verbalized by patient. ADDITIONAL INFORMATION Contusion,Soft Tissue You have a CONTUSION, which is a bruise with swelling and some bleeding under the skin. There are no broken bones. This injury takes a few days to a few weeks to heal. Home Care: 1) Keep the injured part elevated to reduce pain and swelling. This is especially important during the first 48 hours. 2) Make an ice pack (ice cubes in a plastic bag, wrapped in a towel) and apply for 20 minutes every 1-2 hours the first day. Continue this 3-4 times a day until the pain and swelling goes away. 3) You may use acetaminophen (Tylenol) or ibuprofen (Motrin, Advil) to control pain, unless another pain medicine was prescribed. [ NOTE : If you have chronic liver or kidney disease or ever had a stomach ulcer or GI bleeding, talk with your doctor before using these medicines.] Follow Up with your doctor or this facility if you are not improving within the next THREE days. [NOTE: If X-rays were taken, they will be reviewed by a radiologist. You will be notified of any new findings that may affect your care.] Get Prompt Medical Attention if any of the following occur: -- Pain or swelling increases -- Injured arm or leg becomes cold, blue, numb or tingly -- Redness, warmth or drainage from the skin Hydrocodone Bitartrate, Acetaminophen Oral tablet What is this medicine? ACETAMINOPHEN; HYDROCODONE (a set a PAULO erin fen; latosha droe KOE done) is a pain reliever. It is used to treat mild to moderate pain. How should I use this medicine? Take this medicine by mouth. Swallow it with a full glass of water. Follow the directions on the prescription label. If the medicine upsets your stomach, take the medicine with food or milk. Do not take more than you are told to take. Talk to your national coverage specialist regarding the use of this medicine in children. This medicine is not approved for use in children. What side effects may I notice from receiving this medicine? Side effects that you should report to your doctor or health school childcare attendant as soon as possible: allergic reactions like skin rash, itching or hives, swelling of the face, lips, or tongue breathing problems confusion feeling faint or lightheaded, falls stomach pain yellowing of the eyes or skin Side effects that usually do not require medical attention (report to your doctor or health school childcare attendant if they continue or are bothersome): nausea, vomiting stomach upset What may interact with this medicine? alcohol antihistamines isoniazid medicines for depression, anxiety, or psychotic disturbances medicines for sleep muscle relaxants naltrexone narcotic medicines (opiates) for pain phenobarbital ritonavir tramadol What if I miss a dose? If you miss a dose, take it as soon as you can. If it is almost time for your next dose, take only that dose. Do not take double or extra doses. Where should I keep my medicine? Keep out of the reach of children. This medicine can be abused. Keep your medicine in a safe place to protect it from theft. Do not share this medicine with anyone. Selling or giving away this medicine is dangerous and against the law. Store at room temperature between 15 and 30 degrees C (59 and 86 degrees F). Protect from light. Keep container tightly closed. Throw away any unused medicine after the expiration date. Discard unused medicine and used packaging carefully. Pets and children can be harmed if they find used or lost packages. What should I tell my health care provider before I take this medicine? They need to know if you have any of these conditions: brain tumor Crohn's disease, inflammatory bowel disease, or ulcerative colitis drink more than 3 alcohol-containing drinks per day drug abuse or addiction head injury heart or circulation problems kidney disease or problems going to the bathroom liver disease lung disease, asthma, or breathing problems an unusual or allergic reaction to acetaminophen, hydrocodone, other opioid analgesics, other medicines, foods, dyes, or preservatives or trying to get breast-feeding What should I watch for while using this medicine? Tell your doctor or health school childcare attendant if your pain does not go away, if it gets worse, or if you have new or a different type of pain. You may develop tolerance to the medicine. Tolerance means that you will need a higher dose of the medicine for pain relief. Tolerance is normal and is expected if you take the medicine for a long time. Do not suddenly stop taking your medicine because you may develop a severe reaction. Your body becomes used to the medicine. This does NOT mean you are addicted. Addiction is a behavior related to getting and using a drug for a non-medical reason. If you have pain, you have a medical reason to take pain medicine. Your doctor will tell you how much medicine to take. If your doctor wants you to stop the medicine, the dose will be slowly lowered over time to avoid any side effects. You may get drowsy or dizzy when you first start taking the medicine or change doses. Do not drive, use machinery, or do anything that may be dangerous until you know how the medicine affects you. Stand or sit up slowly. There are different types of narcotic medicines (opiates) for pain. If you take more than one type at the same time, you may have more side effects. Give your health care provider a list of all medicines you use. Your doctor will tell you how much medicine to take. Do not take more medicine than directed. Call emergency for help if you have problems breathing. The medicine will cause constipation. Try to have a bowel movement at least every 2 to 3 days. If you do not have a bowel movement for 3 days, call your doctor or health school childcare attendant. Too much acetaminophen can be very dangerous. Do not take Tylenol (acetaminophen) or medicines that contain acetaminophen with this medicine. Many non-prescription medicines contain acetaminophen. Always read the labels carefully. Naproxen Sodium Oral tablet What is this medicine? NAPROXEN (na PROX en) is a non-steroidal anti-inflammatory drug (NSAID). It is used to reduce swelling and to treat pain. This medicine may be used for dental pain, headache, or painful monthly periods. It is also used for painful joint and muscular problems such as arthritis, tendinitis, bursitis, and gout. How should I use this medicine? Take this medicine by mouth with a glass of water. Follow the directions on the prescription label. Take it with food if your stomach gets upset. Try to not lie down for at least 10 minutes after you take it. Take your medicine at regular intervals. Do not take your medicine more often than directed. Long-term, continuous use may increase the risk of heart attack or stroke. A special MedGuide will be given to you by the pharmacist with each prescription and refill. Be sure to read this information carefully each time. Talk to your national coverage specialist regarding the use of this medicine in children. Special care may be needed. What side effects may I notice from receiving this medicine? Side effects that you should report to your doctor or health school childcare attendant as soon as possible: black or bloody stools, blood in the urine or vomit blurred vision chest pain difficulty breathing or wheezing nausea or vomiting severe stomach pain skin rash, skin redness, blistering or peeling skin, hives, or itching slurred speech or weakness on one side of the body swelling of eyelids, throat, lips unexplained weight gain or swelling unusually weak or tired yellowing of eyes or skin Side effects that usually do not require medical attention (report to your doctor or health school childcare attendant if they continue or are bothersome): constipation headache heartburn What may interact with this medicine? alcohol aspirin cidofovir diuretics lithium methotrexate other drugs for inflammation like ketorolac or prednisone pemetrexed probenecid warfarin What if I miss a dose? If you miss a dose, take it as soon as you can. If it is almost time for your next dose, take only that dose. Do not take double or extra doses. Where should I keep my medicine? Keep out of the reach of children. Store at room temperature between 15 and 30 degrees C (59 and 86 degrees F). Keep container tightly closed. Throw away any unused medicine after the expiration date. What should I tell my health care provider before I take this medicine? They need to know if you have any of these conditions: asthma cigarette smoker drink more than 3 alcohol containing drinks a day heart disease or circulation problems such as heart failure or leg edema (fluid retention) high blood pressure kidney disease liver disease stomach bleeding or ulcers an unusual or allergic reaction to naproxen, aspirin, other NSAIDs, other medicines, foods, dyes, or preservatives or trying to get breast-feeding What should I watch for while using this medicine? Tell your doctor or health school childcare attendant if your pain does not get better. Talk to your doctor before taking another medicine for pain. Do not treat yourself. This medicine does not prevent heart attack or stroke. In fact, this medicine may increase the chance of a heart attack or stroke. The chance may increase with longer use of this medicine and in people who have heart disease. If you take aspirin to prevent heart attack or stroke, talk with your doctor or health school childcare attendant. Do not take other medicines that contain aspirin, ibuprofen, or naproxen with this medicine. Side effects such as stomach upset, nausea, or ulcers may be more likely to occur. Many medicines available without a prescription should not be taken with this medicine. This medicine can cause ulcers and bleeding in the stomach and intestines at any time during treatment. Do not smoke cigarettes or drink alcohol. These increase irritation to your stomach and can make it more susceptible to damage from this medicine. Ulcers and bleeding can happen without warning symptoms and can cause . You may get drowsy or dizzy. Do not drive, use machinery, or do anything that needs mental alertness until you know how this medicine affects you. Do not stand or sit up quickly, especially if you are an older patient. This reduces the risk of dizzy or fainting spells. This medicine can cause you to bleed more easily. Try to avoid damage to your teeth and gums when you brush or floss your teeth. You have been given the following additional information: Contusion, Soft Tissue Hydrocodone Bitartrate, Acetaminophen Oral tablet Naproxen Sodium Oral tablet (Electronically signed by Raf Parada Dr. 09/29/2016 10:20)
--- NOTE | 2016-09-29 10:20 | ED ORDER SUMMARY ---
..... Patient: JESSE SNYDER OrderSheet [facility] VisitID: [id number] [address] [place] [address] 31y, F Registration Date/Time: 09/22/2016 ORDER SHEET Weight: 65.7 kg (estimated) Allergies: Sulfa Antibiotics GENERAL ORDERS: Sling - arm (02:17 09/22/2016 Lucio Marley) (2:25 Julisa Jorge) MEDICATION ORDERS: IV FLUIDS: ORDER SHEET NOTES: [Electronically signed by Binu Plasencia R.N. (02:39 09/22/2016)] [Electronically signed by Raf Parada Dr. (10:20 09/29/2016)] [Electronically locked/signed by Binu Plasencia R.N. (02:39 09/22/2016)]
--- NOTE | 2016-09-29 10:20 | ED ORDER SUMMARY ---
..... Patient: JESSE SNYDER OrderSheet [facility] VisitID: [id number] [address] [place] [address] 31y, F Registration Date/Time: 09/22/2016 ORDER SHEET Weight: 65.7 kg (estimated) Allergies: Sulfa Antibiotics GENERAL ORDERS: Sling - arm (02:17 09/22/2016 Lucio Marley) (2:25 Julisa Jorge) MEDICATION ORDERS: IV FLUIDS: ORDER SHEET NOTES: [Electronically signed by Binu Plasencia R.N. (02:39 09/22/2016)] [Electronically signed by Raf Parada Dr. (10:20 09/29/2016)] [Electronically locked/signed by Binu Plasencia R.N. (02:39 09/22/2016)]
--- NOTE | 2016-09-29 10:20 | ED MED RECONCILIATION SUMMARY ---
Patient: JESSE SNYDER Medication Reconciliation Report [facility] VisitID: [id number] [address] [place] [address] 31y, F Registration Date/Time: 09/22/2016 Weight: 65.7 kg Height/Length: 67 in. BMI: 22.7 ALLERGIES: Sulfa Antibiotics The patient's Home Medications are listed below: CONTINUE TAKING THE FOLLOWING MEDICATIONS: Control Pills Ibuprofen Oral The source(s) of the original Home Medication information: Not obtained. The following Medications were given to the patient in the Emergency Department: None. The following Medications were prescribed to the patient: [place] 5 mg / 325 mg tablets: take 1 orally every 6 hours. Dispense ten (10). No refill. Substitution is permissible. -- Raf Parada Dr. Naproxen 500 mg: take 1 orally every 12 hours as needed for pain, stiffness or swelling. Dispense twenty (20). No refills. -- Raf Parada Dr.
--- NOTE | 2016-09-29 10:20 | ED MAR SUMMARY ---
..... Medication Administration Record [facility] [address], [place] [id number] Patient: JESSE SNYDER Visit ID: [id number] 31y, F Weight: 65.7 kg Height/Length: 67 in BMI: 22.7 ALLERGIES: Sulfa Antibiotics
--- NOTE | 2016-09-29 10:20 | ED MED RECONCILIATION SUMMARY ---
Patient: JESSE SNYDER Medication Reconciliation Report [facility] VisitID: [id number] [address] [place] [address] 31y, F Registration Date/Time: 09/22/2016 Weight: 65.7 kg Height/Length: 67 in. BMI: 22.7 ALLERGIES: Sulfa Antibiotics The patient's Home Medications are listed below: CONTINUE TAKING THE FOLLOWING MEDICATIONS: Control Pills Ibuprofen Oral The source(s) of the original Home Medication information: Not obtained. The following Medications were given to the patient in the Emergency Department: None. The following Medications were prescribed to the patient: [place] 5 mg / 325 mg tablets: take 1 orally every 6 hours. Dispense ten (10). No refill. Substitution is permissible. -- Raf Parada Dr. Naproxen 500 mg: take 1 orally every 12 hours as needed for pain, stiffness or swelling. Dispense twenty (20). No refills. -- Raf Parada Dr.
== END 2016-09-22 02:33 | disposition home or self-care (01) ==
LOC: ED SRH 01:34
DX: S40.012A Contusion of left shoulder, initial encounter (principal); W01.198A Fall on same level from slipping, tripping and stumbling with subsequent striking against other object, initial encounter; Y93.01 Activity, walking, marching and hiking; Y99.9 Unspecified external cause status; Y92.009 Unspecified place in unspecified non-institutional (private) residence as the place of occurrence of the external cause; Z88.2 Allergy status to sulfonamides; Z79.3 Long term (current) use of hormonal contraceptives

== ENCOUNTER 2016-12-08 22:58 | Emergency (ER) | payer OTHER ==
--- NOTE | 2016-12-09 00:12 | ED CLINICAL REPORT ---
Clinical Report - Physicians/Mid Levels [facility] [address] [place] [address] 12/08/2016 22:59 [id number] Time Seen: 23:30 Dec 08 2016. Arrived- By private vehicle. HISTORY OF PRESENT ILLNESS Chief Complaint: Injury to the right middle finger. The injury happened just prior to arrival. Occurred at home. The patient sustained a direct blow (from closing of a door). Patient is experiencing mild pain. Patient denies injury to the head or neck. ( patient sustained injury to the right middle finger as she slammed her finger in a door by accident. No prior injuries to the digit. Immunizations up-to-date.). REVIEW OF SYSTEMS The patient sustained a laceration. No tingling or numbness. All systems otherwise negative, except as recorded above. PAST HISTORY The patient's dominant hand is the right. She has not had a prior injury to the same area. Tetanus immunization status is up-to-date. Problems: Anxiety Reaction. Scabies. Bronchitis. Pinworm. Contusion. Dysfunctional Uterine Bleeding. Ovarian Cyst. Additional Surgeries: . Medications: None. Allergies: Sulfa Antibiotics. SOCIAL HISTORY Current every day smoker. History of drug use. No alcohol use. ADDITIONAL NOTES The nursing notes have been reviewed. PHYSICAL EXAM Vital Signs: 12/08/2016 23:05 BP: 151/103. HR: 104. RR: 18. O2 saturation: 97%. Temp: 98.4 F. Pain level now: 9/10. Appearance: Alert. Head: Head atraumatic. ENT: Ears normal. Nose normal. Pharynx normal. Neck: Normal inspection. Neck supple. C-spine non-tender. CVS: Normal heart rate and rhythm. Heart sounds normal. Rhythm normal. No cardiac murmur. Respiratory: No respiratory distress. Breath sounds normal. Skin: Skin warm. Extremities: Right middle finger: No erythema or laceration. Tip of right middle finger: tenderness nail completely avulsed; (avulsed nail tip with bleeding that is controlled, tender. Full rom at dip. Good distal sensation. Ulnar side mild laceration in addition to the total nail avulsion). No tip amputation of the right middle finger. Soft tissue tenderness present. Bony tenderness present. No signs of infection present. No hand injury. Neuro, Vascular and Tendons: Vascular status intact. Tendon function intact. No tendon injury seen. Neuro: Oriented X 3. PROGRESS AND PROCEDURES Laceration Repair: Time: 00:13 Dec 09 2016. Location: (r. middle digit). Time-out completed immediately before the procedure. Length: 1. Complexity: simple (local anesthesia used and sutured). Wound depth/shape- linear and involving fascia. Wound is clean. Anesthesia provided by digital block using 0.50% Marcaine. Prepped with Betadine. Wound explored, cleansed and irrigated. Subcutaneous closure: interrupted 4-0 (one non absorb, two absorbable sutures). Course of Care: Pt with signs of tuft fx, with nail avulsion, which was placed into the nail bed and digit hyperextended, with dressing/ alluminafoam splint for protection. Given im ancef in the er as per patient choice vs iv. Pt to continue keflex/ dressing in place and f/u for wound check in 2-3 days. Very stable. Tolerated digital block okay, Tdap up to date per patient < 5 years. 12/08/2016 23:05 BP: 151/103. HR: 104. RR: 18. O2 saturation: 97%. Temp: 98.4 F. Pain level now: 9/10. Patient is stable. Symptoms better. Patient/family counseled. Disposition: Discharged. CLINICAL IMPRESSION Open distal phalanx fracture of the right middle finger. Nail bed laceration to the right middle finger with damage to nail. No nail bed laceration with foreign body present. INSTRUCTIONS Elevate affected areas above chest level. Wear aluminum splint (3 days). (wound check in 2-3 days (Call orthopedics for follow up) [facility] Dr. Maximo Knight [address] [place] [address] [phone] one suture will need to be removed, two other are dissolvable or can be clipped if not dissolved [facility]: o Address: [address] [place] [address] o Seamar o Address: [address] [place] [address] o ). Prescription Medications: Hydrocodone/APAP 5mg / 325mg: take 1 orally every 6 hours as needed for pain. Dispense fifteen (15). No refill. Cephalexin 500mg: take 1 tab orally every 6 hours for 7 days. No refills Ibuprofen 800 mg tablets: take 1 tablet orally every 8 hours for 3 days, as needed for pain. Dispense ten (10). No refill. Follow-up with: [facility], , [address] [address] Follow up in two days. Call for an appointment. (Electronically signed by Maryellen Crawford P.A.-C 12/09/2016 0:22)
--- NOTE | 2016-12-09 00:12 | ED NURSING NOTES ---
Clinical Report - Nurses [facility] [address] [place] [address] 12/08/2016 22:59 Patient: [facility]DER [id number] TRIAGE Triage time 23:05. Acuity: LEVEL 4. Chief Complaint: INJURY TO THE RIGHT MIDDLE FINGER. 23:08. Alert. SEPSIS SCREEN: Sepsis Screen. Negative (no infection suspected/documented). NEAL COMA SCORE: [place] Coma Scale: 15- eyes open spontaneously (4); best verbal response- oriented x 4 (5); best motor response- obeys commands (6). --23:08 Radhames Ziegler R.N. 23:05 12/08/16. BP: 151/103. HR: 104. RR: 18. O2 saturation: 97%. Temp: 98.4 F (oral). Pain level now: 04/06. --23:08 Radhames Ziegler R.N. Weight: 56.6 kg stated. Height/Length: 63 inches Per Patient. BMI: 22.1. --23:06 Radhames Ziegler R.N. Medications None. --23:05 Radhames Zielger R.N. Medication/allergy information source: the patient. --23:08 Radhames Ziegler R.N. Allergies Sulfa Antibiotics. --23:06 Radhames Ziegler R.N. History Arrived by private vehicle. Historian: patient. Unaccompanied. Primary physician (None). Mechanism of injury: (Smashed in a bathroom door). Treatment INTERACTIVE MEDIA PROJECT MANAGER: None. PAST MEDICAL HX: Tetanus status: up-to-date. Immunizations: up-to-date. Last normal menstrual period was 4 weeks ago. SOCIAL HX: Current every day heavy tobacco smoker- less than 1 pack per day. History of weekly drug use: marijuana. No alcohol use. No infectious disease exposure. ABUSE ASSESSMENT: No report of abuse. FALL RISK ASSESSMENT: Fall risk assessment completed. No fall risk identified. NUTRITIONAL RISK ASSESSMENT: The nutritional risk assessment revealed no deficiencies. FUNCTIONAL ASSESSMENT: Functional assessment: no impairments noted. LEARNING NEEDS ASSESSMENT: The learning needs assessment revealed no barriers. SKIN INTEGRITY ASSESSMENT: Skin integrity risk assessment completed. No skin integrity risk identified. --23:08 Radhames Ziegler R.N. PROBLEMS: Anxiety Reaction. Scabies. Ovarian Cyst. --23:06 Radhames Ziegler R.N. ADDITIONAL SURGERIES: . --23:06 Radhames Ziegler R.N. Interventions ID band on patient. To treatment room. --23: Radhames Ziegler R.N. PHYSICAL ASSESSMENT 23:09. Ambulatory to room. GENERAL / NEURO / PSYCH: Oriented X 4. Alert. EXTREMITIES: Extremity pulses are within normal limits. Tip of right middle finger: partially avulsed nail. SKIN: Skin is warm and dry. --23: Radhames Ziegler R.N. NURSING PROGRESS NOTES 23:09. Two patient identifiers checked. Call light placed in reach. Bed placed in lowest position. Brakes of bed on. Patient ready for evaluation- chart flagged. --23:09 Radhames Ziegler R.N. 23:43 Wound irrigated with 500ml NS. --23:46 Radhames Ziegler R.N. 00:02 Portable x-ray taken. --00:02 Radhames Ziegler R.N. Applied clean bulky and pressure dressing consisting of 4x4 gauze and telfa pad. Secured with tape. --00:21 Andrew Fernandez, ER Veterans Service Representative Aluminum-foam finger splint applied to right middle finger by tech. Distal pulses intact, sensation intact and motor within normal limits. --00:21 Andrew Fernandez, ER Veterans Service Representative 00:22 12/09/2016 Ancef (CeFAZolin Sodium) IM 2 gm given. Given in the right ventral gluteus and left ventral gluteus (split dose). Allergies verified and confirmed 5 rights. --00:25 Radhames Ziegler R.N. 00:37. The patient is calm and resting quietly. Overall patient status is improved- she states feels better. GENERAL / NEURO / PSYCH: Alert. Oriented X 4. RESPIRATORY: No respiratory distress. SKIN: Skin is warm and dry. --00:42 Radhames Ziegler R.N. 00:36 12/09/2016 Ancef IM Response: no adverse reaction. --00:42 Radhames Ziegler R.N. DISPOSITION / DISCHARGE Departure time: 00:40. Condition at departure: improved and stable. ( Patient in a hurry to get home, vitals not taken at pt request). No learning barriers present. Discharge instructions provided and reviewed with records coordinator and the patient. Reviewed medication(s) side effects, precautions, dosing and course information. Prescription(s) given to the patient. Patient and records coordinator verbalized understanding. Written instructions provided in Belarusian. The patient was discharged home and accompanied by records coordinator. She left the Emergency Department ambulatory and via private vehicle. Food Broker driving. FALL RISK ASSESSMENT: Fall risk assessment completed. No fall risk identified. --00:42 Radhames Ziegler R.N. Locked/Released at 12/09/2016 0:43 by Radhames Ziegler R.N.
--- NOTE | 2016-12-09 00:12 | ED NURSING NOTES ---
Clinical Report - Nurses [facility] [address] [place] [place] [address] 12/08/2016 22:59 [id number] TRI[facility] Triage time 23:05. Acuity: LEVEL 4. Chief Complaint: INJURY TO THE RIGHT MIDDLE FINGER. 23:08. Alert. SEPSIS SCREEN: Sepsis Screen. Negative (no infection suspected/documented). NEAL COMA SCORE: [place] Coma Scale: 15- eyes open spontaneously (4); best verbal response- oriented x 4 (5); best motor response- obeys commands (6). --23:08 Radhames Ziegler R.N. 23:05 12/08/16. BP: 151/103. HR: 104. RR: 18. O2 saturation: 97%. Temp: 98.4 F (oral). Pain level now: 04/06. --23:08 Radhames Ziegler R.N. Weight: 56.6 kg stated. Height/Length: 63 inches Per Patient. BMI: 22.1. --23:06 Radhames Ziegler R.N. Medications None. --23:05 Radhames Ziegler R.N. Medication/allergy information source: the patient. --23:08 Radhames Ziegler R.N. Allergies Sulfa Antibiotics. --23:06 Radhames Ziegler R.N. History Arrived by private vehicle. Historian: patient. Unaccompanied. Primary physician (None). Mechanism of injury: (Smashed in a bathroom door). Treatment CHIPPING MACHINE OPERATOR: None. PAST MEDICAL HX: Tetanus status: up-to-date. Immunizations: up-to-date. Last normal menstrual period was 4 weeks ago. SOCIAL HX: Current every day heavy tobacco smoker- less than 1 pack per day. History of weekly drug use: marijuana. No alcohol use. No infectious disease exposure. ABUSE ASSESSMENT: No report of abuse. FALL RISK ASSESSMENT: Fall risk assessment completed. No fall risk identified. NUTRITIONAL RISK ASSESSMENT: The nutritional risk assessment revealed no deficiencies. FUNCTIONAL ASSESSMENT: Functional assessment: no impairments noted. LEARNING NEEDS ASSESSMENT: The learning needs assessment revealed no barriers. SKIN INTEGRITY ASSESSMENT: Skin integrity risk assessment completed. No skin integrity risk identified. --23:08 Radhames Ziegler R.N. PROBLEMS: Anxiety Reaction. Scabies. Ovarian Cyst. --23:06 Radhames Ziegler R.N. ADDITIONAL SURGERIES: . --23:06 Radhames Ziegler R.N. Interventions ID band on patient. To treatment room. --23: Radhames Ziegler R.N. PHYSICAL ASSESSMENT 23:09. Ambulatory to room. GENERAL / NEURO / PSYCH: Oriented X 4. Alert. EXTREMITIES: Extremity pulses are within normal limits. Tip of right middle finger: partially avulsed nail. SKIN: Skin is warm and dry. --23: Radhames Ziegler R.N. NURSING PROGRESS NOTES 23:09. Two patient identifiers checked. Call light placed in reach. Bed placed in lowest position. Brakes of bed on. Patient ready for evaluation- chart flagged. --23:09 Radhames Ziegler R.N. 23:43 Wound irrigated with 500ml NS. --23:46 Radhames Ziegler R.N. 00:02 Portable x-ray taken. --00:02 Radhames Ziegler R.N. Applied clean bulky and pressure dressing consisting of 4x4 gauze and telfa pad. Secured with tape. --00:21 Andrew Fernandez, ER Senior Specialist Aluminum-foam finger splint applied to right middle finger by tech. Distal pulses intact, sensation intact and motor within normal limits. --00:21 Andrew Fernandez, ER Senior Specialist 00:22 12/09/2016 Ancef (CeFAZolin Sodium) IM 2 gm given. Given in the right ventral gluteus and left ventral gluteus (split dose). Allergies verified and confirmed 5 rights. --00:25 Radhames Ziegler R.N. 00:37. The patient is calm and resting quietly. Overall patient status is improved- she states feels better. GENERAL / NEURO / PSYCH: Alert. Oriented X 4. RESPIRATORY: No respiratory distress. SKIN: Skin is warm and dry. --00:42 Radhames Ziegler R.N. 00:36 12/09/2016 Ancef IM Response: no adverse reaction. --00:42 Radhames Ziegler R.N. DISPOSITION / DISCHARGE Departure time: 00:40. Condition at departure: improved and stable. ( Patient in a hurry to get home, vitals not taken at pt request). No learning barriers present. Discharge instructions provided and reviewed with field technician and the patient. Reviewed medication(s) side effects, precautions, dosing and course information. Prescription(s) given to the patient. Patient and field technician verbalized understanding. Written instructions provided in Burmese. The patient was discharged home and accompanied by field technician. She left the Emergency Department ambulatory and via private vehicle. V[employer]ing [employer]ional[employer] Teacher driving. FALL RISK ASSESSMENT: Fall risk assessment completed. No fall risk identified. --00:42 Radhames Ziegler R.N. Locked/Released at 12/09/2016 0:43 by Radhames Ziegler R.N.
--- NOTE | 2016-12-09 00:12 | ED CLINICAL REPORT ---
Clinical Report - Physicians/Mid Levels [facility] [address] [place] [place] [address] 12/08/2016 22:59 [id number] Time Seen: 23:30 Dec 08 2016. Arrived- By private vehicle. HISTORY OF PRESENT ILLNESS Chief Complaint: Injury to the right middle finger. The injury happened just prior to arrival. Occurred at home. The patient sustained a direct blow (from closing of a door). Patient is experiencing mild pain. Patient denies injury to the head or neck. ( patient sustained injury to the right middle finger as she slammed her finger in a door by accident. No prior injuries to the digit. Immunizations up-to-date.). REVIEW OF SYSTEMS The patient sustained a laceration. No tingling or numbness. All systems otherwise negative, except as recorded above. PAST HISTORY The patient's dominant hand is the right. She has not had a prior injury to the same area. Tetanus immunization status is up-to-date. Problems: Anxiety Reaction. Scabies. Bronchitis. Pinworm. Contusion. Dysfunctional Uterine Bleeding. Ovarian Cyst. Additional Surgeries: . Medications: None. Allergies: Sulfa Antibiotics. SOCIAL HISTORY Current every day smoker. History of drug use. No alcohol use. ADDITIONAL NOTES The nursing notes have been reviewed. PHYSICAL EXAM Vital Signs: 12/08/2016 23:05 BP: 151/103. HR: 104. RR: 18. O2 saturation: 97%. Temp: 98.4 F. Pain level now: 9/10. Appearance: Alert. Head: Head atraumatic. ENT: Ears normal. Nose normal. Pharynx normal. Neck: Normal inspection. Neck supple. C-spine non-tender. CVS: Normal heart rate and rhythm. Heart sounds normal. Rhythm normal. No cardiac murmur. Respiratory: No respiratory distress. Breath sounds normal. Skin: Skin warm. Extremities: Right middle finger: No erythema or laceration. Tip of right middle finger: tenderness nail completely avulsed; (avulsed nail tip with bleeding that is controlled, tender. Full rom at dip. Good distal sensation. Ulnar side mild laceration in addition to the total nail avulsion). No tip amputation of the right middle finger. Soft tissue tenderness present. Bony tenderness present. No signs of infection present. No hand injury. Neuro, Vascular and Tendons: Vascular status intact. Tendon function intact. No tendon injury seen. Neuro: Oriented X 3. PROGRESS AND PROCEDURES Laceration Repair: Time: 00:13 Dec 09 2016. Location: (r. middle digit). Time-out completed immediately before the procedure. Length: 1. Complexity: simple (local anesthesia used and sutured). Wound depth/shape- linear and involving fascia. Wound is clean. Anesthesia provided by digital block using 0.50% Marcaine. Prepped with Betadine. Wound explored, cleansed and irrigated. Subcutaneous closure: interrupted 4-0 (one non absorb, two absorbable sutures). Course of Care: Pt with signs of tuft fx, with nail avulsion, which was placed into the nail bed and digit hyperextended, with dressing/ alluminafoam splint for protection. Given im ancef in the er as per patient choice vs iv. Pt to continue keflex/ dressing in place and f/u for wound check in 2-3 days. Very stable. Tolerated digital block okay, Tdap up to date per patient < 5 years. 12/08/2016 23:05 BP: 151/103. HR: 104. RR: 18. O2 saturation: 97%. Temp: 98.4 F. Pain level now: 9/10. Patient is stable. Symptoms better. Patient/family counseled. Disposition: Discharged. CLINICAL IMPRESSION Open distal phalanx fracture of the right middle finger. Nail bed laceration to the right middle finger with damage to nail. No nail bed laceration with foreign body present. INSTRUCTIONS Elevate affected areas above chest level. Wear aluminum splint (3 days). (wound check in 2-3 days (Call orthopedics for follow up) [facility]. Maximo Knight [address] [place] [address] [phone] one suture will need to be removed, two other are dissolvable or can be clipped if not dissolved [facility]: o Address: [address] [place] [place] [address] o Seamar o Address: [address] [place] [address] o ). Prescription Medications: Hydrocodone/APAP 5mg / 325mg: take 1 orally every 6 hours as needed for pain. Dispense fifteen (15). No refill. Cephalexin 500mg: take 1 tab orally every 6 hours for 7 days. No refills Ibuprofen 800 mg tablets: take 1 tablet orally every 8 hours for 3 days, as needed for pain. Dispense ten (10). No refill. Follow-[facility] with: [facility], , [address] [address] Follow up in two days. Call for an appointment. (Electronically signed by Maryellen Crawford P.A.-C 12/09/2016 0:22)
--- NOTE | 2016-12-09 00:12 | ED ORDER SUMMARY ---
..... Patient: JESSE SNYDER OrderSheet [facility] VisitID: [id number] [address] [place] [address] 31y, F Registration Date/Time: 12/08/2016 ORDER SHEET Weight: 56.6 kg (stated) Allergies: Sulfa Antibiotics GENERAL ORDERS: Finger Right (3) Urgent (23:14 12/08/2016 EKoroleva P.A.-C) (Ack 23:15 Carmelo ER Plastics Fabrication Supervisor) (0:05 JQuivey R.N.) Wound Irrigation (23:29 12/08/2016 EKoroleva P.A.-C) (23:44 JQuivey R.N.) MEDICATION ORDERS: Keflex PO 500 mg (NOW) (00:03 12/09/2016 EKoroleva P.A.-C) (Ack 0:05 JQuivey R.N.) (Cancelled: Other0:08 EKoroleva P.A.-C) Ancef IM 2 gm (NOW) (00:08 12/09/2016 EKoroleva P.A.-C) (Ack 0:11 JQuivey R.N.) (0:25 JQuivey R.N.) IV FLUIDS: ORDER SHEET NOTES: [Electronically signed by Maryellen Crawford P.A.-C (00:22 12/09/2016)] [Electronically signed by Radhames Ziegler R.N. (00:43 12/09/2016)] [Electronically locked/signed by Radhames Ziegler R.N. (00:43 12/09/2016)]
--- NOTE | 2016-12-09 00:12 | ED ORDER SUMMARY ---
..... Patient: JESSE SNYDER OrderSheet [facility] VisitID: [id number] [address] [place] [address] 31y, F Registration Date/Time: 12/08/2016 ORDER SHEET Weight: 56.6 kg (stated) Allergies: Sulfa Antibiotics GENERAL ORDERS: Finger Right (3) Urgent (23:14 12/08/2016 EKoroleva P.A.-C) (Ack 23:15 Carmelo ER Barrel Inspector) (0:05 JQuivey R.N.) Wound Irrigation (23:29 12/08/2016 EKoroleva P.A.-C) (23:44 JQuivey R.N.) MEDICATION ORDERS: Keflex PO 500 mg (NOW) (00:03 12/09/2016 EKoroleva P.A.-C) (Ack 0:05 JQuivey R.N.) (Cancelled: Other0:08 EKoroleva P.A.-C) Ancef IM 2 gm (NOW) (00:08 12/09/2016 EKoroleva P.A.-C) (Ack 0:11 JQuivey R.N.) (0:25 JQuivey R.N.) IV FLUIDS: ORDER SHEET NOTES: [Electronically signed by Maryellen Crawford P.A.-C (00:22 12/09/2016)] [Electronically signed by Radhames Ziegler R.N. (00:43 12/09/2016)] [Electronically locked/signed by Radhames Ziegler R.N. (00:43 12/09/2016)]
--- NOTE | 2016-12-09 00:27 | DIAGNOSTIC IMAGING REPORT ---
PROCEDURE: XR FINGER - RIGHT INDICATION: TRAUMA/INJURY TECHNIQUE: Three views. COMPARISON: None. FINDINGS: There is a minimally distracted transverse fracture of the tuft of the distal phalanx, right third finger, with soft tissue injury. The rest of the osseous structures and joint spaces are normal. IMPRESSION: 1. Open fracture of the tuft of the distal phalanx, right third finger.
--- NOTE | 2016-12-09 00:43 | ED MAR SUMMARY ---
..... Medication Administration Record [facility] [address] [place] [address] Patient: JESSE SNYDER Visit ID: [id number] 31y, F Weight: 56.6 kg Height/Length: 63 in BMI: 22.1 ALLERGIES: Sulfa Antibiotics Given 00:22 12/09/2016 Radhames Ziegler RRonnieNRonnie Medication Administered: ANCEF [IM] (CEFAZOLIN SODIUM), Dose: 2 gm IM. Medication Ordered: Ancef IM 2 gm (NOW).
--- NOTE | 2016-12-09 00:43 | ED MED RECONCILIATION SUMMARY ---
Patient: JESSE SNYDER Medication Reconciliation Report [facility] VisitID: [id number] [address] [place] [address] 31y, F Registration Date/Time: 12/08/2016 Weight: 56.6 kg Height/Length: 63 in. BMI: 22.1 ALLERGIES: Sulfa Antibiotics The patient's Home Medications are listed below: NONE. The source(s) of the original Home Medication information: patient The following Medications were given to the patient in the Emergency Department: Ancef [IM] IM 2 gm, administered: 12/09/2016 12:22:00 AM The following Medications were prescribed to the patient: Hydrocodone/APAP 5mg / 325mg: take 1 orally every 6 hours as needed for pain. Dispense fifteen (15). No refill. -- Maryellen Crawford, P.A.-C Cephalexin 500mg: take 1 tab orally every 6 hours for 7 days. No refills -- Maryellen Crawford, P.A.-C Ibuprofen 800 mg tablets: take 1 tablet orally every 8 hours for 3 days, as needed for pain. Dispense ten (10). No refill. -- Maryellen Crawford, P.A.-C
--- NOTE | 2016-12-09 00:43 | ED MED RECONCILIATION SUMMARY ---
Patient: JESSE SNYDER Medication Reconciliation Report [facility] VisitID: [id number] [address] [place] [address] 31y, F Registration Date/Time: 12/08/2016 Weight: 56.6 kg Height/Length: 63 in. BMI: 22.1 ALLERGIES: Sulfa Antibiotics The patient's Home Medications are listed below: NONE. The source(s) of the original Home Medication information: patient The following Medications were given to the patient in the Emergency Department: Ancef [IM] IM 2 gm, administered: 12/09/2016 12:22:00 AM The following Medications were prescribed to the patient: Hydrocodone/APAP 5mg / 325mg: take 1 orally every 6 hours as needed for pain. Dispense fifteen (15). No refill. -- Maryellen Crawford, P.A.-C Cephalexin 500mg: take 1 tab orally every 6 hours for 7 days. No refills -- Maryellen Crawford, P.A.-C Ibuprofen 800 mg tablets: take 1 tablet orally every 8 hours for 3 days, as needed for pain. Dispense ten (10). No refill. -- Maryellen Crawford, P.A.-C
--- NOTE | 2016-12-09 00:43 | ED DISCHARGE INSTRUCTIONS ---
Patient: JESSE SNYDER General Instructions [facility] VisitID: [id number] [address], [place] [id number] 31y, F Registration Date/Time: 12/08/2016 Open distal phalanx fracture of the right middle finger. Nail bed laceration to the right middle finger with damage to nail. No nail bed laceration with foreign body present. INSTRUCTIONS Elevate affected areas above chest level. Wear aluminum splint (3 days). (wound check in 2-3 days (Call orthopedics for follow up) [facility] OR Dr. Maximo Knight [address] [place] [address] [phone] one suture will need to be removed, two other are dissolvable or can be clipped if not dissolved [facility]: o Address: [address] [place] [address] o [facility] o Address: [address] [place] [id number] o ). Prescription Medications: Hydrocodone/APAP 5mg / 325mg: take 1 orally every 6 hours as needed for pain. Dispense fifteen (15). No refill. Cephalexin 500mg: take 1 tab orally every 6 hours for 7 days. No refills Ibuprofen 800 mg tablets: take 1 tablet orally every 8 hours for 3 days, as needed for pain. Dispense ten (10). No refill. Follow-up with: [facility], , [address], [place] [address] Follow up in two days. Call for an appointment. ADDITIONAL INFORMATION Fracture:Finger [Open] You have a fracture of your finger (broken finger) with a nearby cut, puncture or deep scrape. This causes local pain, swelling and bruising. Because of the open injury, there is a risk of infection in the skin and bone. Antibiotics will be used to lower the risk of infection. This injury takes about four weeks to heal. Finger injuries are often treated with a splint, cast or by taping the injured finger to the next one ("boris taping"). This protects the injured finger and holds the bone in position while it heals. More serious fractures may require surgery. If the FINGERNAIL has been severely injured, it will probably fall off in 1-2 weeks. A new fingernail will usually start to grow back within a month. Home Care: Keep your hand elevated to reduce pain and swelling. When sitting or lying down elevate your arm above the level of your heart. You can do this by placing your arm on a pillow that rests on your chest or on a pillow at your side. This is most important during the first 48 hours after injury. Apply an ice pack (ice cubes in a plastic bag, wrapped in a towel) over the injured area for 20 minutes every 1-2 hours the first day for pain relief. Continue this 3-4 times a day until the pain and swelling goes away. Keep the cast/splint completely dry at all times. Bathe with your cast/splint out of the water, protected with a large plastic bag, rubber-banded at the top end. If a fiberglass cast/splint gets wet, you can dry it with a hair-dryer. If boris tape was applied and it becomes wet or dirty, change it. You may replace it with paper, plastic or cloth tape. Cloth tape and paper tapes must be kept dry. Keep the boris tape in place for at least four weeks. You may use acetaminophen (Tylenol) or ibuprofen (Motrin, Advil) to control pain, unless another pain medicine was prescribed. [ NOTE : If you have chronic liver or kidney disease or ever had a stomach ulcer or GI bleeding, talk with your doctor before using these medicines.] Take all antibiotics until finished. Follow Up with your doctor within one week, or as advised by our staff, to be sure the bone is healing properly, . [NOTE: A radiologist will review any X-rays that were taken. We will notify you of any new findings that may affect your care.] Return Promptly or contact your doctor if any of the following occur: The plaster cast or splint becomes wet or soft The fiberglass cast or splint remains wet for more than 24 hours Pain or swelling increase Finger becomes cold, blue, numb or tingly Redness, warmth, swelling, drainage from the wound or foul odor from a cast or splint Fever of 100.4F (38C) or higher, or as directed by your healthcare provider Nail Injury (Partial Finger/Toe Nail Plate Avulsion) Some injuries to a finger or toe can cause loosening of the nail. Sometimes there is a cutin the nail bed or a fracture of the bone under the nail. If the nail is more severely injured, it may fall off completely in 12 weeks. This is not serious and in most cases, the nail will grow back from under the cuticle. This takes a few weeks to start and is complete in about 46 months for a fingernail and 12 months for a toenail. If the nail bed was damaged, the nail may grow back with a rough or irregular shape. Sometimes the nail may not regrow at all. Home care The following guidelines will help you care for your wound at home: Keep the injured part elevated to reduce pain and swelling. This is very important during the first 48 hours. Make an ice pack (ice cubes in a plastic bag, wrapped in a towel) and apply for 20 minutes every two hours during the first day, then 34 times a day to reduce swelling and pain until the swelling goes down. You may use acetaminophen or ibuprofen to control pain, unless another pain medicine was prescribed.If you have chronic liver or kidney disease or ever had a stomach ulcer or GI bleeding, talk with your doctor before using these medicines. Do not use ibuprofen in children under six months of age. If a bandage was applied, change it once a day, unless told otherwise. Be careful not to pull on the nail when removing the dressing. If necessary, soak the dressing off while holding your finger or toe under warm running water. Apply a layer of antibiotic ointment onto the nail before putting on the new dressing or adhesive bandage. This will help keep it from sticking. If an X-ray was taken and a fracture was found, it will take about four weeks for this to heal. The injured part should be protected with a splint or tape while it is healing. If you were prescribed antibiotics to prevent infection, take them as directed until they are all gone. Follow-up care Follow up with your doctor or this facility as directed. Note:If X-rays were taken, they will be reviewed by a radiologist. You will be notified of any new findings that may affect your care. When to seek medical care Get prompt medical attention if any of the following occur: Pain or swelling increase Redness around the nail Pus (creamy white or yellow fluid) draining from the nail Fever of 100.4F (38C) or higher, or as directed by your health care provider Hydrocodone Bitartrate, Acetaminophen Oral tablet What is this medicine? ACETAMINOPHEN; HYDROCODONE (a set a PAULO erin fen; latosha droe KOE done) is a pain reliever. It is used to treat mild to moderate pain. How should I use this medicine? Take this medicine by mouth. Swallow it with a full glass of water. Follow the directions on the prescription label. If the medicine upsets your stomach, take the medicine with food or milk. Do not take more than you are told to take. Talk to your fast food fry cook regarding the use of this medicine in children. This medicine is not approved for use in children. What side effects may I notice from receiving this medicine? Side effects that you should report to your doctor or health manager intensive care as soon as possible: allergic reactions like skin rash, itching or hives, swelling of the face, lips, or tongue breathing problems confusion feeling faint or lightheaded, falls stomach pain yellowing of the eyes or skin Side effects that usually do not require medical attention (report to your doctor or health manager intensive care if they continue or are bothersome): nausea, vomiting stomach upset What may interact with this medicine? alcohol antihistamines isoniazid medicines for depression, anxiety, or psychotic disturbances medicines for sleep muscle relaxants naltrexone narcotic medicines (opiates) for pain phenobarbital ritonavir tramadol What if I miss a dose? If you miss a dose, take it as soon as you can. If it is almost time for your next dose, take only that dose. Do not take double or extra doses. Where should I keep my medicine? Keep out of the reach of children. This medicine can be abused. Keep your medicine in a safe place to protect it from theft. Do not share this medicine with anyone. Selling or giving away this medicine is dangerous and against the law. Store at room temperature between 15 and 30 degrees C (59 and 86 degrees F). Protect from light. Keep container tightly closed. Throw away any unused medicine after the expiration date. Discard unused medicine and used packaging carefully. Pets and children can be harmed if they find used or lost packages. What should I tell my health care provider before I take this medicine? They need to know if you have any of these conditions: brain tumor Crohn's disease, inflammatory bowel disease, or ulcerative colitis drink more than 3 alcohol-containing drinks per day drug abuse or addiction head injury heart or circulation problems kidney disease or problems going to the bathroom liver disease lung disease, asthma, or breathing problems an unusual or allergic reaction to acetaminophen, hydrocodone, other opioid analgesics, other medicines, foods, dyes, or preservatives or trying to get breast-feeding What should I watch for while using this medicine? Tell your doctor or health manager intensive care if your pain does not go away, if it gets worse, or if you have new or a different type of pain. You may develop tolerance to the medicine. Tolerance means that you will need a higher dose of the medicine for pain relief. Tolerance is normal and is expected if you take the medicine for a long time. Do not suddenly stop taking your medicine because you may develop a severe reaction. Your body becomes used to the medicine. This does NOT mean you are addicted. Addiction is a behavior related to getting and using a drug for a non-medical reason. If you have pain, you have a medical reason to take pain medicine. Your doctor will tell you how much medicine to take. If your doctor wants you to stop the medicine, the dose will be slowly lowered over time to avoid any side effects. You may get drowsy or dizzy when you first start taking the medicine or change doses. Do not drive, use machinery, or do anything that may be dangerous until you know how the medicine affects you. Stand or sit up slowly. There are different types of narcotic medicines (opiates) for pain. If you take more than one type at the same time, you may have more side effects. Give your health care provider a list of all medicines you use. Your doctor will tell you how much medicine to take. Do not take more medicine than directed. Call emergency for help if you have problems breathing. The medicine will cause constipation. Try to have a bowel movement at least every 2 to 3 days. If you do not have a bowel movement for 3 days, call your doctor or health manager intensive care. Too much acetaminophen can be very dangerous. Do not take Tylenol (acetaminophen) or medicines that contain acetaminophen with this medicine. Many non-prescription medicines contain acetaminophen. Always read the labels carefully. You have been given the following additional information: Fracture, Finger (Open) Nail Avulsion, Partial Hydrocodone Bitartrate, Acetaminophen Oral tablet (Electronically signed by Maryellen Crawford P.A.-C 12/09/2016 0:22)
--- NOTE | 2016-12-09 00:43 | ED DISCHARGE INSTRUCTIONS ---
Patient: JESSE SNYDER General Instructions [facility] VisitID: [id number] [address], [place] [id number] 31y, F Registration Date/Time: 12/08/2016 Open distal phalanx fracture of the right middle finger. Nail bed laceration to the right middle finger with damage to nail. No nail bed laceration with foreign body present. INSTRUCTIONS Elevate affected areas above chest level. Wear aluminum splint (3 days). (wound check in 2-3 days (Call orthopedics for follow up) [facility] OR Dr. Maximo Knight [address] [place] [address] [phone] one suture will need to be removed, two other are dissolvable or can be clipped if not dissolved [facility]: o Address: [address] [place] [address] o [facility] o Address: [address] [place] [id number] o ). Prescription Medications: Hydrocodone/APAP 5mg / 325mg: take 1 orally every 6 hours as needed for pain. Dispense fifteen (15). No refill. Cephalexin 500mg: take 1 tab orally every 6 hours for 7 days. No refills Ibuprofen 800 mg tablets: take 1 tablet orally every 8 hours for 3 days, as needed for pain. Dispense ten (10). No refill. Follow-up with: [facility], , [address], [place] [address] Follow up in two days. Call for an appointment. ADDITIONAL INFORMATION Fracture:Finger [Open] You have a fracture of your finger (broken finger) with a nearby cut, puncture or deep scrape. This causes local pain, swelling and bruising. Because of the open injury, there is a risk of infection in the skin and bone. Antibiotics will be used to lower the risk of infection. This injury takes about four weeks to heal. Finger injuries are often treated with a splint, cast or by taping the injured finger to the next one ("boris taping"). This protects the injured finger and holds the bone in position while it heals. More serious fractures may require surgery. If the FINGERNAIL has been severely injured, it will probably fall off in 1-2 weeks. A new fingernail will usually start to grow back within a month. Home Care: Keep your hand elevated to reduce pain and swelling. When sitting or lying down elevate your arm above the level of your heart. You can do this by placing your arm on a pillow that rests on your chest or on a pillow at your side. This is most important during the first 48 hours after injury. Apply an ice pack (ice cubes in a plastic bag, wrapped in a towel) over the injured area for 20 minutes every 1-2 hours the first day for pain relief. Continue this 3-4 times a day until the pain and swelling goes away. Keep the cast/splint completely dry at all times. Bathe with your cast/splint out of the water, protected with a large plastic bag, rubber-banded at the top end. If a fiberglass cast/splint gets wet, you can dry it with a hair-dryer. If boris tape was applied and it becomes wet or dirty, change it. You may replace it with paper, plastic or cloth tape. Cloth tape and paper tapes must be kept dry. Keep the boris tape in place for at least four weeks. You may use acetaminophen (Tylenol) or ibuprofen (Motrin, Advil) to control pain, unless another pain medicine was prescribed. [ NOTE : If you have chronic liver or kidney disease or ever had a stomach ulcer or GI bleeding, talk with your doctor before using these medicines.] Take all antibiotics until finished. Follow Up with your doctor within one week, or as advised by our staff, to be sure the bone is healing properly, . [NOTE: A radiologist will review any X-rays that were taken. We will notify you of any new findings that may affect your care.] Return Promptly or contact your doctor if any of the following occur: The plaster cast or splint becomes wet or soft The fiberglass cast or splint remains wet for more than 24 hours Pain or swelling increase Finger becomes cold, blue, numb or tingly Redness, warmth, swelling, drainage from the wound or foul odor from a cast or splint Fever of 100.4F (38C) or higher, or as directed by your healthcare provider Nail Injury (Partial Finger/Toe Nail Plate Avulsion) Some injuries to a finger or toe can cause loosening of the nail. Sometimes there is a cutin the nail bed or a fracture of the bone under the nail. If the nail is more severely injured, it may fall off completely in 12 weeks. This is not serious and in most cases, the nail will grow back from under the cuticle. This takes a few weeks to start and is complete in about 46 months for a fingernail and 12 months for a toenail. If the nail bed was damaged, the nail may grow back with a rough or irregular shape. Sometimes the nail may not regrow at all. Home care The following guidelines will help you care for your wound at home: Keep the injured part elevated to reduce pain and swelling. This is very important during the first 48 hours. Make an ice pack (ice cubes in a plastic bag, wrapped in a towel) and apply for 20 minutes every two hours during the first day, then 34 times a day to reduce swelling and pain until the swelling goes down. You may use acetaminophen or ibuprofen to control pain, unless another pain medicine was prescribed.If you have chronic liver or kidney disease or ever had a stomach ulcer or GI bleeding, talk with your doctor before using these medicines. Do not use ibuprofen in children under six months of age. If a bandage was applied, change it once a day, unless told otherwise. Be careful not to pull on the nail when removing the dressing. If necessary, soak the dressing off while holding your finger or toe under warm running water. Apply a layer of antibiotic ointment onto the nail before putting on the new dressing or adhesive bandage. This will help keep it from sticking. If an X-ray was taken and a fracture was found, it will take about four weeks for this to heal. The injured part should be protected with a splint or tape while it is healing. If you were prescribed antibiotics to prevent infection, take them as directed until they are all gone. Follow-up care Follow up with your doctor or this facility as directed. Note:If X-rays were taken, they will be reviewed by a radiologist. You will be notified of any new findings that may affect your care. When to seek medical care Get prompt medical attention if any of the following occur: Pain or swelling increase Redness around the nail Pus (creamy white or yellow fluid) draining from the nail Fever of 100.4F (38C) or higher, or as directed by your health care provider Hydrocodone Bitartrate, Acetaminophen Oral tablet What is this medicine? ACETAMINOPHEN; HYDROCODONE (a set a PAULO erin fen; latosha droe KOE done) is a pain reliever. It is used to treat mild to moderate pain. How should I use this medicine? Take this medicine by mouth. Swallow it with a full glass of water. Follow the directions on the prescription label. If the medicine upsets your stomach, take the medicine with food or milk. Do not take more than you are told to take. Talk to your metal buggy operator regarding the use of this medicine in children. This medicine is not approved for use in children. What side effects may I notice from receiving this medicine? Side effects that you should report to your doctor or health small animal caretaker as soon as possible: allergic reactions like skin rash, itching or hives, swelling of the face, lips, or tongue breathing problems confusion feeling faint or lightheaded, falls stomach pain yellowing of the eyes or skin Side effects that usually do not require medical attention (report to your doctor or health small animal caretaker if they continue or are bothersome): nausea, vomiting stomach upset What may interact with this medicine? alcohol antihistamines isoniazid medicines for depression, anxiety, or psychotic disturbances medicines for sleep muscle relaxants naltrexone narcotic medicines (opiates) for pain phenobarbital ritonavir tramadol What if I miss a dose? If you miss a dose, take it as soon as you can. If it is almost time for your next dose, take only that dose. Do not take double or extra doses. Where should I keep my medicine? Keep out of the reach of children. This medicine can be abused. Keep your medicine in a safe place to protect it from theft. Do not share this medicine with anyone. Selling or giving away this medicine is dangerous and against the law. Store at room temperature between 15 and 30 degrees C (59 and 86 degrees F). Protect from light. Keep container tightly closed. Throw away any unused medicine after the expiration date. Discard unused medicine and used packaging carefully. Pets and children can be harmed if they find used or lost packages. What should I tell my health care provider before I take this medicine? They need to know if you have any of these conditions: brain tumor Crohn's disease, inflammatory bowel disease, or ulcerative colitis drink more than 3 alcohol-containing drinks per day drug abuse or addiction head injury heart or circulation problems kidney disease or problems going to the bathroom liver disease lung disease, asthma, or breathing problems an unusual or allergic reaction to acetaminophen, hydrocodone, other opioid analgesics, other medicines, foods, dyes, or preservatives or trying to get breast-feeding What should I watch for while using this medicine? Tell your doctor or health small animal caretaker if your pain does not go away, if it gets worse, or if you have new or a different type of pain. You may develop tolerance to the medicine. Tolerance means that you will need a higher dose of the medicine for pain relief. Tolerance is normal and is expected if you take the medicine for a long time. Do not suddenly stop taking your medicine because you may develop a severe reaction. Your body becomes used to the medicine. This does NOT mean you are addicted. Addiction is a behavior related to getting and using a drug for a non-medical reason. If you have pain, you have a medical reason to take pain medicine. Your doctor will tell you how much medicine to take. If your doctor wants you to stop the medicine, the dose will be slowly lowered over time to avoid any side effects. You may get drowsy or dizzy when you first start taking the medicine or change doses. Do not drive, use machinery, or do anything that may be dangerous until you know how the medicine affects you. Stand or sit up slowly. There are different types of narcotic medicines (opiates) for pain. If you take more than one type at the same time, you may have more side effects. Give your health care provider a list of all medicines you use. Your doctor will tell you how much medicine to take. Do not take more medicine than directed. Call emergency for help if you have problems breathing. The medicine will cause constipation. Try to have a bowel movement at least every 2 to 3 days. If you do not have a bowel movement for 3 days, call your doctor or health small animal caretaker. Too much acetaminophen can be very dangerous. Do not take Tylenol (acetaminophen) or medicines that contain acetaminophen with this medicine. Many non-prescription medicines contain acetaminophen. Always read the labels carefully. You have been given the following additional information: Fracture, Finger (Open) Nail Avulsion, Partial Hydrocodone Bitartrate, Acetaminophen Oral tablet (Electronically signed by Maryellen Crawford P.A.-C 12/09/2016 0:22)
--- NOTE | 2016-12-09 00:43 | ED MAR SUMMARY ---
..... Medication Administration Record [facility] [address] [place] [address] Patient: JESSE SNYDER Visit ID: [id number] 31y, F Weight: 56.6 kg Height/Length: 63 in BMI: 22.1 ALLERGIES: Sulfa Antibiotics Given 00:22 12/09/2016 Radhames Ziegler RRonnieNRonnie Medication Administered: ANCEF [IM] (CEFAZOLIN SODIUM), Dose: 2 gm IM. Medication Ordered: Ancef IM 2 gm (NOW).
== END 2016-12-09 00:40 | disposition home or self-care (01) ==
LOC: ED SRH 22:58
DX: S62.632B Displaced fracture of distal phalanx of right middle finger, initial encounter for open fracture (principal); S61.312A Laceration without foreign body of right middle finger with damage to nail, initial encounter; W23.0XXA Caught, crushed, jammed, or pinched between moving objects, initial encounter; Y93.9 Activity, unspecified; Y92.002 Bathroom of unspecified non-institutional (private) residence as the place of occurrence of the external cause; Y99.9 Unspecified external cause status; F17.290 Nicotine dependence, other tobacco product, uncomplicated; Z88.2 Allergy status to sulfonamides